=== PATIENT | male | born 1955 | race Caucasian/White ===

== ENCOUNTER 2022-04-17 19:30 | Emergency (ER) | payer MEDICARE ==
[~2022-04-17] VITALS: Ht 188 cm; Wt 90.7 kg
[2022-04-17] MEDS ORDERED: CLINGEL TOP (19:51)
[2022-04-17] MEDS ORDERED: ATORVASTATIN CA20 MG PO (19:51)
[2022-04-17] MEDS ORDERED: PRAM.5 PO (19:51)
[2022-04-17] MEDS ORDERED: FLUTICASONE-SA1 EA10 INH (19:52)
[2022-04-17] MEDS ORDERED: YUPELRI175 MCG/1 INH (19:52)
[2022-04-17] MEDS ORDERED: KLOR-CON 1010 ME8 PO (19:52)
[2022-04-17] MEDS ORDERED: FUROSEMIDE20 MG PO (19:52)
[2022-04-17] MEDS ORDERED: NEURONTIN300 MG PO (19:52)
[2022-04-17] MEDS ORDERED: ELIQUIS5 M3 PO (19:52)
[2022-04-17] MEDS ORDERED: METO100ER PO (19:52)
[2022-04-17] MEDS ORDERED: TIOT18 INH (19:52)
[2022-04-17] MEDS ORDERED: PREDNISONE (19:53)
[2022-04-17] MEDS ORDERED: Ventolin/Prove6.7 GM INH (19:53)
[2022-04-17] MEDS ORDERED: ESCITALOPRAM TAB 20M (19:55)
[2022-04-17] MEDS ORDERED: LISINOPRIL TAB 5MG (19:55)
[2022-04-17] MEDS ORDERED: Amlodipine Bes2.5 MG PO (19:56)
[2022-04-17] MEDS ORDERED: PANT40 PO (19:57)
[2022-04-17 20:02] LABS: BASOPHILS ABSOLUTE AUTO 0.02 K/mm3 (0.00-0.23); BASOPHILS PERCENT AUTO 0 % (0-2); EOSINOPHILS ABSOLUTE AUTO 0.01 K/mm3 (0.00-0.68); EOSINOPHILS PERCENT AUTO 0 % (0-6); Hematocrit 35.9 % (37.0-53.0); Hemoglobin 11.1 g/dL (13.5-17.5); IMMATURE GRAN ABSOLUTE AUTO 0.05 K/mm3 (0.00-0.10); IMMATURE GRAN PERCENT AUTO 0 % (0-1); LYMPHOCYTES ABSOLUTE AUTO 0.66 K/mm3 (0.84-5.20); LYMPHOCYTES PERCENT AUTO 6 % (21-46); MONOCYTES PERCENT AUTO 5 % (4-13); Mean Corpuscular HGB 29.9 pg (26.0-34.0); Mean Corpuscular HGB Conc 30.9 g/dL (31.5-36.5); Mean Corpuscular Volume 97 fL (80-100); Mean Platelet Volume 9.6 fL (9.1-12.4); NEUTROPHILS ABSOLUTE AUTO 10.62 K/mm3 (1.96-9.15); NEUTROPHILS PERCENT AUTO 89 % (41-73); Platelet Count 295 K/mm3 (150-400); RDW Coefficient Variation 16.4 % (11.7-14.2); RDW Standard Deviation 57.1 fL (35.1-46.3); Red Blood Cell Count 3.71 M/mm3 (4.30-5.90); White Blood Cell Count 11.96 K/mm3 (4.00-11.30)
[2022-04-17 20:22] LABS: Albumin, Blood 3.6 g/dL (3.4-5.0); Albumin/Globulin Ratio 1.1 (0.8-1.8); Bilirubin, Total 0.8 mg/dL (0.1-1.0); Bun/Creatinine Ratio 20.5 (12.0-20.0); Calcium, Blood 9.4 mg/dL (8.5-10.1); Creatinine, Blood 1.22 mg/dL (0.60-1.20); Globulin, Blood 3.3 g/dL (2.2-4.0); Potassium, Blood 4.5 mmol/L (3.5-5.5); Total Protein, Blood 6.9 g/dL (6.4-8.2)
== END 2022-04-17 22:45 | disposition home or self-care (01) ==
LOC: ER 19:30
PROVIDERS: Emergency Medicine
DX: J44.1 Chronic obstructive pulmonary disease with (acute) exacerbation (principal); I10 Essential (primary) hypertension; Z95.1 Presence of aortocoronary bypass graft; Z95.2 Presence of prosthetic heart valve; Z79.899 Other long term (current) drug therapy; Z79.01 Long term (current) use of anticoagulants; Z79.52 Long term (current) use of systemic steroids
CPT/HCPCS: 36415; 71046; 80053; 84145; 84484; 85025; 94640; 94664; A9270

== ENCOUNTER 2022-07-23 10:10 | Inpatient (IN) | payer OTHER ==
[~2022-07-23] VITALS: Ht 185.4 cm; Wt 90.2 kg
[~2022-07-23 10:10] MED LIST: ATORVASTATIN CA20 MG PO; Amlodipine Bes2.5 MG PO; CLINGEL TOP; ELIQUIS5 M3 PO; ESCITALOPRAM TAB 20M; FLUTICASONE-SA1 EA10 INH; FUROSEMIDE20 MG PO; KLOR-CON 1010 ME8 PO; LISINOPRIL TAB 5MG; METO100ER PO; NEURONTIN300 MG PO; PANT40 PO; PRAM.5 PO; PREDNISONE; TIOT18 INH; Ventolin/Prove6.7 GM INH; YUPELRI175 MCG/1 INH
[2022-07-23 10:48] LABS: BASOPHILS ABSOLUTE AUTO 0.03 K/mm3 (0.00-0.23); BASOPHILS PERCENT AUTO 0 % (0-2); Hematocrit 31.8 % (37.0-53.0); LYMPHOCYTES ABSOLUTE AUTO 0.16 K/mm3 (0.84-5.20); LYMPHOCYTES PERCENT AUTO 1 % (21-46); MONOCYTES ABSOLUTE AUTO 0.25 K/mm3 (0.16-1.47); MONOCYTES PERCENT AUTO 2 % (4-13); Mean Corpuscular HGB 30.8 pg (26.0-34.0); Mean Corpuscular HGB Conc 31.4 g/dL (31.5-36.5); Mean Corpuscular Volume 98 fL (80-100); NRBC ABSOLUTE 0.05 K/mm3 (0.00-0.02); NRBC Auto 0.3 /100 WBC (0.0-0.2); Platelet Count 145 K/mm3 (150-400); RDW Coefficient Variation 17.3 % (11.7-14.2); RDW Standard Deviation 63.2 fL (35.1-46.3); Red Blood Cell Count 3.25 M/mm3 (4.30-5.90); White Blood Cell Count 14.53 K/mm3 (4.00-11.30)
[2022-07-23 10:50] LABS: EOSINOPHILS PERCENT AUTO 0 % (0-6); IMMATURE GRAN ABSOLUTE AUTO 0.16 K/mm3 (0.00-0.10); IMMATURE GRAN PERCENT AUTO 1 % (0-1); NEUTROPHILS ABSOLUTE AUTO 13.93 K/mm3 (1.96-9.15); NEUTROPHILS PERCENT AUTO 96 % (41-73)
[2022-07-23 11:02] LABS: Albumin, Blood 2.2 g/dL (3.4-5.0); Albumin/Globulin Ratio 0.5 (0.8-1.8); Bilirubin, Total 0.8 mg/dL (0.1-1.0); Bun/Creatinine Ratio 29.8 (12.0-20.0); Calcium, Blood 8.6 mg/dL (8.5-10.1); Creatinine, Blood 2.42 mg/dL (0.60-1.20); Globulin, Blood 4.1 g/dL (2.2-4.0); Potassium, Blood 5.2 mmol/L (3.5-5.5); Total Protein, Blood 6.3 g/dL (6.4-8.2)
[2022-07-23 11:37] LABS: Influenza A, PCR NEGATIVE (NEGATIVE); Influenza B, PCR NEGATIVE (NEGATIVE); Resp Syncytial Virus, PCR NEGATIVE (NEGATIVE); SARS-Cov-2 (COVID-19) PCR, MMC NEGATIVE (NEGATIVE)
--- NOTE | 2022-07-23 19:35 | NUR ---
PATIENT ARRIVED TO ICU 4 AT THIS TIME. PATIENT LETHARGIC BUT EASILY AROUSABLE. ABLE TO ANSWER QUESTIONS AND FOLLOW COMMANDS. LEVO RUNNING AT 9. PATIENT ON BIPAP. SKIN COVERED IN SCATTERED BRUISES. BILATERAL LOWER EXTREMITIES EDEMETOUS FROM TOES TO GROIN. DOPPLERED PULSES. ATTACHED TO MONITORS AND CONSULTED PHYSICIAN FOR POSSIBLE CONCERN FOR INTUBATION.
[2022-07-23 23:23] LABS: Source, Urine Clean Catch
[2022-07-23 23:40] LABS: Appearance, Urine Clear (Clear); Bilirubin, Urine Neg (Neg); Blood, Urine Neg (Neg); Color, Urine Yellow (P-Yellow); Glucose Qualitative, Urine Neg (Neg); Ketones, Urine Neg (Neg); Leukocyte Esterase, Urine Neg (Neg); Nitrite, Urine Neg (Neg); Protein, Urine 2+ (Neg); Urobilinogen, Urine NORM (Normal)
[2022-07-24 00:03] LABS: Amorphous Light (0-Heavy); Bacteria Few /hpf; Red Blood Cells, Urine 0-2 /hpf (0-2); Squamous Epithelial Cells Few /hpf (Few); White Blood Cells, Urine 0-2 /hpf (0-5)
[2022-07-24 04:11] LABS: Hematocrit 27.3 % (37.0-53.0); Hemoglobin 8.7 g/dL (13.5-17.5); Mean Corpuscular HGB 30.7 pg (26.0-34.0); Mean Corpuscular HGB Conc 31.9 g/dL (31.5-36.5); Mean Corpuscular Volume 97 fL (80-100); Mean Platelet Volume 10.6 fL (9.1-12.4); NRBC ABSOLUTE 0.02 K/mm3 (0.00-0.02); NRBC Auto 0.1 /100 WBC (0.0-0.2); Platelet Count 100 K/mm3 (150-400); RDW Coefficient Variation 17.6 % (11.7-14.2); RDW Standard Deviation 62.9 fL (35.1-46.3); Red Blood Cell Count 2.83 M/mm3 (4.30-5.90); White Blood Cell Count 21.91 K/mm3 (4.00-11.30)
[2022-07-24 05:08] LABS: Albumin, Blood 2.5 g/dL (3.4-5.0); Albumin/Globulin Ratio 0.7 (0.8-1.8); Bilirubin, Total 1.1 mg/dL (0.1-1.0); Bun/Creatinine Ratio 26.1 (12.0-20.0); Calcium, Blood 8.1 mg/dL (8.5-10.1); Creatinine, Blood 2.87 mg/dL (0.60-1.20); Globulin, Blood 3.5 g/dL (2.2-4.0); Magnesium, Blood 2.4 mg/dL (1.6-2.4); Potassium, Blood 4.9 mmol/L (3.5-5.5)
[2022-07-24 05:33] LABS: BAND PERCENT MAN 13 % (0-8); BASOPHILS PERCENT MAN 0 % (0-2); EOSINOPHILS PERCENT MAN 0 % (0-6); LYMPHOCYTES ABSOLUTE MAN 0.43 K/mm3 (0.84-5.20); LYMPHOCYTES PERCENT MAN 2 % (21-46); METAMYELOCYTE ABSOLUTE MAN 0.65 K/mm3 (0.00-0.00); METAMYELOCYTE PERCENT MAN 3 % (0-0); MONOCYTES ABSOLUTE MAN 0.21 K/mm3 (0.16-1.47); MONOCYTES PERCENT MAN 1 % (4-13); MYELOCYTE ABSOLUTE MAN 0.43 K/mm3 (0.00-0.00); MYELOCYTE PERCENT MAN 2 % (0-0); NEUTROPHILS ABSOLUTE MAN 20.15 K/mm3 (1.96-9.15); SEG NEUTROPHILS PERCENT MAN 79 % (41-73); TOTAL CELLS COUNTED 100
--- NOTE | 2022-07-24 06:35 | NUR ---
SHIFT SUMMARY: NEURO: PATIENT ALERT AND ORIENTED. COMPLAINING OF PAIN IN WRISTS AND ARMS BUT OXYCODONE CONTROLS THE PAIN. CARDIAC: PATIENT INITIALLY ON LEVOPHED BUT TITRATED OFF BY 0015. MAP> [address] BROWN. HR 80'S SINUS RHYTHM RESP: INITIAL CONCERN FOR INTUBATION DUE TO RESPIRATORY STATUS BUT PATIENT GREATY IMPROVED THROUGHOUT SHIFT. TRANSITIONED FROM BIPAP TO ROOM AIR OVERNIGHT. PATIENT TOLERATING WELL. GI: ABDOMEN DISTENDED, HYPOACTIVE BOWEL SOUNDS. : DAVIS CATHETER PLACED ON ARRIVAL. SKIN: SCATTERED BRUISING ALL OVER. +4 PITTING EDEMA BILATERALLY. OTHER: AM LABS SHOWED INCREASED WBC'S, DECREASED PLATELETS AND DECREASED HGB. MD NOTIFIED, NO ORDERS RECEIVED.
--- NOTE | 2022-07-24 07:25 | NUR ---
took over care of pt at 0700. pt resting on RA
--- NOTE | 2022-07-24 13:44 | NUR ---
FAMILY UPDATED ON PT'S TRANSFER TO PCU
--- NOTE | 2022-07-24 18:59 | NUR ---
PT ARRIVED TO ROOM PCU20 AT 1335 THIS AFTERNOON. PT ALERT, ORIENTED, ABLE TO USE CALL LIGHT FOR NEEDS. PT TAKEN TO CT/IMAGING PER MD ORDERS. PT MEDICATED FOR PAIN PER EMAR. FAMILY AT BEDSIDE THIS EVENING UPDATED, DR WATERS TO REVIEW IMAGING RESULTS WITH THEM IN THE AM. NO ACUTE EVENTS SINCE TRANSFER. CALL LIGHT IN REACH, WILL CONTINUE TO MONITOR AND GIVE REPORT TO NOC SHIFT RN.
--- NOTE | 2022-07-24 19:34 | NUR ---
ASSUMED CARE OF PT, REPORT RECEIVED. PT NOTED RESTING QUIETLY AND RECLINING IN BED WITH UDN IN PROGRESS, VITALS REVIEWED WITH OFFGOING RN, MAINTAINING STABLE AT THIS TIME. QUAD LUMEN CENTRAL LINE ACCESS NOTED TO RIGHT UPPER CHEST, DRESSING CDI, PT DOES HAVE PERIPHERAL ACCESS, WILL PLAN TO ASSESS FOR ABILITY TO DC CENTRAL LINE THIS SHIFT. SATS MAINTAINING ON ROOM AIR, LOW 90S, PT DENIES NEEDS AT THIS TIME.
[2022-07-25 04:44] LABS: Hematocrit 26.7 % (37.0-53.0); Hemoglobin 8.5 g/dL (13.5-17.5); Mean Corpuscular HGB 30.2 pg (26.0-34.0); Mean Corpuscular HGB Conc 31.8 g/dL (31.5-36.5); Mean Corpuscular Volume 95 fL (80-100); NRBC ABSOLUTE 0.04 K/mm3 (0.00-0.02); NRBC Auto 0.2 /100 WBC (0.0-0.2); Platelet Count 82 K/mm3 (150-400); RDW Coefficient Variation 17.8 % (11.7-14.2); RDW Standard Deviation 62.5 fL (35.1-46.3); Red Blood Cell Count 2.81 M/mm3 (4.30-5.90); White Blood Cell Count 17.23 K/mm3 (4.00-11.30)
[2022-07-25 04:58] LABS: Albumin, Blood 2.1 g/dL (3.4-5.0); Anion Gap 9 mmol/L (6-16); Blood Urea Nitrogen 88 mg/dL (8-24); Bun/Creatinine Ratio 31.8 (12.0-20.0); CO2, Blood 24 mmol/L (21-32); Calcium, Blood 8.1 mg/dL (8.5-10.1); Chloride, Blood 103 mmol/L (98-108); Creatinine, Blood 2.77 mg/dL (0.60-1.20); Glomerular Filtration Rate 25 (60-); Glucose, Blood 242 mg/dL (70-99); Phosphorus, Blood 5.1 mg/dL (2.5-4.9); Potassium, Blood 5.2 mmol/L (3.5-5.5); Sodium, Blood 136 mmol/L (136-145)
[2022-07-25 05:32] LABS: BAND PERCENT MAN 4 % (0-8); BASOPHILS PERCENT MAN 0 % (0-2); EOSINOPHILS PERCENT MAN 0 % (0-6); LYMPHOCYTES ABSOLUTE MAN 0.17 K/mm3 (0.84-5.20); LYMPHOCYTES PERCENT MAN 1 % (21-46); MONOCYTES PERCENT MAN 0 % (4-13); NEUTROPHILS ABSOLUTE MAN 17.05 K/mm3 (1.96-9.15); SEG NEUTROPHILS PERCENT MAN 95 % (41-73); TOTAL CELLS COUNTED 100
--- NOTE | 2022-07-25 05:34 | NUR ---
PT RESTS QUIETLY THROUGHOUT SHIFT, CONTINUES TO STATE THAT HIS BREATHING FEELS IMPROVED, LUNGS REMAIN COARSE WITH INTERMITTENT INS/EXP WHEEZES HOWEVER SATS HAVE MAINTAINED EVEN WITH SLEEP IN THE LOW 90S, NO VISIBLE INCREASED WORK OF BREATHING IS NOTED AT REST AND PT HAS BEEN QUITE CONVERSATIONAL AT TIMES. TOLERATES TURNS EVERY 2 HOURS, ARMS DO CONTINUE TO BE PAINFUL TO TOUCH, RIGHT ARM PAIN IS RATED SOMEWHAT GREATER THAN LEFT, MOST NOTEABLY AT PT ELBOW. PRESSURES CONTINUE TO MAINTAIN MAP. AM LABS NOTED, WILL DISCUSS WITH PHYSICIAN EMISSIONS REPAIR TECHNICIAN.
--- NOTE | 2022-07-25 12:01 | NUR ---
Assumed care of patient at approx 1000, I agree with previosu turnaround engineer. Pt alert, oriented x3, calm and coopertive of care. Pt up in chair with 1-2 person assist. Pt denies pain, chest pain, nausea and dizziness at this time. pt reports tingling to bilateral elbows to fingers. Pt sob with exertion, spo2 >90% on ra, ls coarse t/o occasional wheezes noted, pt reporting a productive couhg, no sputum seen at this time. Tele sinus tach 100-110's. bp stable. BLE pitting edema 4+, tapering to thigh at 2+; bilateral hands/forearms, nonpitting. Abd mild distention, soft, nontender, with hypoactive bt, denies nausea at this time, but has had it intermittently. Kaur in place and draining. Vss. No other acute changes noted. Will continue to monitor.
--- NOTE | 2022-07-25 18:17 | NUR ---
Shift Summary Pt reporting pain to bilateral arms this afternoon, medicated per emar. Pt up in chair for majority of shift. Vss. Pt reciving midodrine. No other acute changes noted. Will continue to monitor unitl report given to oncoming rn.
--- NOTE | 2022-07-25 19:30 | NUR ---
ASSUMED CARE PT SITTING UP IN CHAIR, AWAKE AND ALERT. ANSWERING ORIENTATION QUESTIONS CORRECTLY. O2 SATS >90% ON RA. HR NSR 90'S. BP STABLE. PT COMPLAINS OF PAIN TO ARMS. DAVIS PATENT AND DRAINING. CENTRAL LINE TO RIGHT CHEST WITH DRESSING SATURATED IN BLOOD. CENTRAL LINE REMOVED PER PROTOCOL AND NO COMPLICATIONS. PRESSURE HELD FOR 5 MINUTES AND PT LYING FLAT FOR 30 MIN. PT PROVIDED BED BATH. WILL CONTINUE TO MONITOR CLOSELY. BED ALARM ON FOR SAFETY
--- NOTE | 2022-07-25 19:49 | NUR ---
Time spent with patient hearing his stroy and stressors. He ahs care for his mother for quite some time. He relaocated here after her passing. He appears to be struggling with living alone and his declining health. He ahs a cat he is very attached to. He speaks frequently about the support he gets from his sister and his daughter. His face is some what mask like and some tremor. He struggles with sleep and comfort. He has only had one fall this past year. He is anxious about his future. Struggling with his vision and not having glasses. Brought his some readers and some art therapy. Asked chaplian to see him for support. Will follow up with prognsoisi and plan of care. pt may be high risk for readmission of he returns home after rehab.
--- NOTE | 2022-07-26 04:53 | NUR ---
SHIFT SUMMARY PT REMAINS ALERT AND ORIENTED. VS STABLE. PT DENIES ANY PAIN AFTER MEDICATION ADMINISTRATION. PT HAS SLEPT MOST OF SHIFT. NO OTHER ACUTE CHANGES. WILL CONTINUE TO MONITOR AND REPORT TO ONCOMING RN
[2022-07-26 05:49] LABS: BASOPHILS ABSOLUTE AUTO 0.02 K/mm3 (0.00-0.23); BASOPHILS PERCENT AUTO 0 % (0-2); EOSINOPHILS PERCENT AUTO 0 % (0-6); Hematocrit 28.6 % (37.0-53.0); Hemoglobin 9.1 g/dL (13.5-17.5); IMMATURE GRAN ABSOLUTE AUTO 0.24 K/mm3 (0.00-0.10); IMMATURE GRAN PERCENT AUTO 2 % (0-1); LYMPHOCYTES ABSOLUTE AUTO 0.27 K/mm3 (0.84-5.20); LYMPHOCYTES PERCENT AUTO 2 % (21-46); MONOCYTES ABSOLUTE AUTO 0.33 K/mm3 (0.16-1.47); MONOCYTES PERCENT AUTO 2 % (4-13); Mean Corpuscular HGB 29.8 pg (26.0-34.0); Mean Corpuscular HGB Conc 31.8 g/dL (31.5-36.5); Mean Corpuscular Volume 94 fL (80-100); Mean Platelet Volume 12.3 fL (9.1-12.4); NEUTROPHILS PERCENT AUTO 95 % (41-73); NRBC ABSOLUTE 0.04 K/mm3 (0.00-0.02); NRBC Auto 0.3 /100 WBC (0.0-0.2); Platelet Count 70 K/mm3 (150-400); RDW Standard Deviation 62.6 fL (35.1-46.3); Red Blood Cell Count 3.05 M/mm3 (4.30-5.90); White Blood Cell Count 15.46 K/mm3 (4.00-11.30)
[2022-07-26 06:07] LABS: Albumin, Blood 2.2 g/dL (3.4-5.0); Anion Gap 9 mmol/L (6-16); Blood Urea Nitrogen 95 mg/dL (8-24); Bun/Creatinine Ratio 40.8 (12.0-20.0); CO2, Blood 23 mmol/L (21-32); Calcium, Blood 8.7 mg/dL (8.5-10.1); Chloride, Blood 105 mmol/L (98-108); Creatinine, Blood 2.33 mg/dL (0.60-1.20); Glomerular Filtration Rate 30 (60-); Glucose, Blood 178 mg/dL (70-99); Phosphorus, Blood 4.4 mg/dL (2.5-4.9); Potassium, Blood 5.1 mmol/L (3.5-5.5); Sodium, Blood 137 mmol/L (136-145)
--- NOTE | 2022-07-26 08:18 | NUR ---
Am note Pt alert, oriented x4; calm and cooperative with care. Pt up with 2 person assist to recliner this am with gaitbelt. Pt denies pain, chest pain/pressure, nausea and dizziness at this time. Pt sob with exertion, spo2 >90% on ra at rest, desaturated with activity to 82%, placed 2l o2 via nc to recover, pt has productive cough with peterson/pink tinged sputum, ls coarse t/o with crackles to bases. Pt tele sinus tach 100-120's, bp stable. Abd mild distention, soft, nontender with normoactive bt. Ble 4+ pitting edema noted to knees and 2+ to thigh, nonpitting edema to bue. Other vss. No other acute changes noted. Will continue to monitor.
--- NOTE | 2022-07-26 10:52 | NUR ---
Spiritual care visit conducted. Pt tells me about his mediacl issues/history, his family (3 dtrs back east, sister Roxana who is present in the ) and the of his mother (who recently from COVID). He also shares about his Church Che[employer] background, how he moved away from the rastafari but states that in this season of his life he finds much comfort and strength from his prayers. He talks about his personal struggles because of the strain from medical problem after medical problem. I normalize his experience, reinforce helpful attitudes and practices and provide therapeutic listening, grief support and prayer. Pt and Roxana responds well to all interventions and show signs of being comforted and encouraged. I will continue to remain available to pt and fmaily.
--- NOTE | 2022-07-26 17:28 | NUR ---
Shift Summary Pt up in recliner for majority of shift, 2 person assist. Titrated back down to ra, continues to desaturate with activty, plans to use 2l o2 via nc. Pt reporting pain to shoulder/arms; medicated per emar. Other vss. No other acute changes noted. Will continue to monitor unitl report given to oncoming rn.
[2022-07-27 04:30] LABS: Albumin, Blood 2.4 g/dL (3.4-5.0); Anion Gap 8 mmol/L (6-16); Blood Urea Nitrogen 98 mg/dL (8-24); Bun/Creatinine Ratio 46.9 (12.0-20.0); CO2, Blood 24 mmol/L (21-32); Chloride, Blood 104 mmol/L (98-108); Creatinine, Blood 2.09 mg/dL (0.60-1.20); Glomerular Filtration Rate 34 (60-); Glucose, Blood 146 mg/dL (70-99); Phosphorus, Blood 4.7 mg/dL (2.5-4.9); Potassium, Blood 5.6 mmol/L (3.5-5.5); Sodium, Blood 136 mmol/L (136-145)
--- NOTE | 2022-07-27 06:01 | NUR ---
SHIFT SUMMARY PT A&OX4, PLEASANT AND COOPERATIVE. PT WANTED TO REMAIN IN CHAIR THIS EVENING, ELEVATED LEGS, 2 ASSIST WHEN MOVING PER HANDOFF. VSS T/O SHIFT. SPO2 >93 ON RA. MEDICATED FOR PAIN ONCE, FOR ARMS/SHOULDER PAIN. DAVIS DRAINING TO GRAVITY, YELLOW/CLEAR. CALLS APPROPRIATELY, CALL LIGHT WITHIN REACH.
--- NOTE | 2022-07-27 07:32 | NUR ---
Am note Assumed care of patient at 0700. Pt Alert, oriented x4; calm and cooperative with care. Pt up in recliner, 2 person assist with walker and gaitbelt. Pt denies pain, chest pain/presure, sob, nausea and dizziness. Pt reports numb/tingling to extremities. Edema noted to ble feet to knees 4+, and bilateral thighs 1-2+, nonpitting edema noted to bue. Tele sinus 80's, bp stalbe. Ls coarse, crackles to bases, spo2 >90% on ra, pt has productive cough with peterson/pink tinged sputum. Abd mild distention, nontender, with normoactive bt. Other vss. No other acute changes noted. Will continue to monitor until report given to oncoming rn.
--- NOTE | 2022-07-27 17:52 | NUR ---
Shift Summray Pt continues on ra t/o shift. Up in chair, encouraged to elevated ble t/o shift. BP this afternoon 138/87 held midodrine this evening. Other vss. No other acute changes noted. Report given to rn assuming care of patient. Pt transfering to medical unit.
--- NOTE | 2022-07-28 04:49 | NUR ---
SHIFT SUMMARY PATIENT WAS A RECENT TRANSFER FROM PCU. PATIENT HAS BEEN ALERT AND ORIENTED BUT FORGETFUL. PATIENT IS A 2 PERSON MAX ASSIST. PATIENT HAS BEEN IN CHAIR MOST OF SHIFT. PATIENT HAS A DAVIS THAT IS DRAINING TO GRAVITY TINA URINE. PATIENT HAS HAD NO ACUTE EVENTS THIS SHIFT. VITAL SIGNS REVIEWED. PATIENT HAS NO COMPLAINTS OF PAIN, NAUSEA, SOB OR VOMITTING THIS SHIFT. BED IN LOCKED AND LOWEST POSITION. CALL LIGHT IN PLACE. WILL MONITOR UNTIL SHIFT CHANGE.
[2022-07-28 05:00] LABS: BASOPHILS ABSOLUTE AUTO 0.03 K/mm3 (0.00-0.23); BASOPHILS PERCENT AUTO 0 % (0-2); EOSINOPHILS PERCENT AUTO 0 % (0-6); Hematocrit 27.8 % (37.0-53.0); IMMATURE GRAN ABSOLUTE AUTO 0.61 K/mm3 (0.00-0.10); IMMATURE GRAN PERCENT AUTO 5 % (0-1); LYMPHOCYTES PERCENT AUTO 4 % (21-46); MONOCYTES ABSOLUTE AUTO 0.37 K/mm3 (0.16-1.47); MONOCYTES PERCENT AUTO 3 % (4-13); Mean Corpuscular HGB 30.6 pg (26.0-34.0); Mean Corpuscular HGB Conc 32.4 g/dL (31.5-36.5); Mean Corpuscular Volume 95 fL (80-100); Mean Platelet Volume 11.6 fL (9.1-12.4); NEUTROPHILS PERCENT AUTO 89 % (41-73); NRBC ABSOLUTE 0.02 K/mm3 (0.00-0.02); NRBC Auto 0.1 /100 WBC (0.0-0.2); Platelet Count 74 K/mm3 (150-400); RDW Standard Deviation 62.9 fL (35.1-46.3); Red Blood Cell Count 2.94 M/mm3 (4.30-5.90); White Blood Cell Count 13.61 K/mm3 (4.00-11.30)
[2022-07-28 05:34] LABS: Bun/Creatinine Ratio 53.6 (12.0-20.0); Creatinine, Blood 1.68 mg/dL (0.60-1.20); Potassium, Blood 4.7 mmol/L (3.5-5.5)
--- NOTE | 2022-07-28 10:15 | NUR ---
BLACKSMITH HELPER REPORTING THAT PT HAD TWO SMALL 5 BEAT RUNS V-TACH. PT ASYMPTOMATIC WHEN CHECKED. DENIED CHEST PAIN/PRESSURE OR INCREASED SOB. WILL CONTINUE TO MONITOR.
--- NOTE | 2022-07-28 11:37 | NUR ---
TELE REPORTS ANOTHER SMALL RUN OF V-TACH, T/C TO INFORM DR REED. NO NEW ORDERS AT THIS TIME, CONTINUE TO MONITOR
--- NOTE | 2022-07-28 18:24 | NUR ---
PT ALERT AND ORIENTED, FORGETFUL. PLEASANT AND COOPERATIVE WITH CARE. WORKED WITH PT/OT THIS MORNING, UP TO BEDSIDE RECLINER. REPORTING BACK PAIN, MEDICATED PER EMAR WITH 5 MG PO ROXICODONE. DAVIS DRAINING TO GRAVITY WITH TINA URINE. PT IS A 2 MAX ASSIST OR OVERHEAD LIFT. PO MEDS TAKEN WITH APPLESAUSE. WILL CONTINUE TO MONITOR AND REPORT TO ONCOMING RN
--- NOTE | 2022-07-29 12:53 | NUR ---
PT HAS HISTORY OF SHORT RUNS OF V-TACH BETWEEN 4-7 BEATS. PT DENIES CHEST PAIN, SOB, OR PALPITATIONS. RN AND TELEMETRY DISCUSSED, WILL CONTINUE TO MONITOR DUE TO PT'S HISTORY OF FREQUENT SHORT BURSTS OF VTACH YESTERDAY AND TODAY.
--- NOTE | 2022-07-29 13:27 | NUR ---
NOTIFIED DR. MICHELE, VIA CELL PHONE, THAT PT CONTINUES TO HAVE SHORT BURSTS OF V-TACH LASTING 4-7 BEATS. PT IS ASYMPTOMATIC, DENIES CHEST PAIN/PRESSURE OR SOB. PT STATES HE IS ANXIOUS, DENIES FEELING OF PALPITATIONS. DR. MICHELE WITH NO NEW ORDERS AT THIS TIME. WILL CONTINUE TO MONITOR VIA TELEMETRY.
--- NOTE | 2022-07-29 18:31 | NUR ---
SHIFT SUMMARY PT AWAITING PLACEMENT IN SNF. HE C/O BURNING ON HIS TONGUE AND ROOF OF MOUTH, RN ASSESSED WHITE PLAQUES IN MOUTH THAT ARE NOT REMOVED BY BRUSHING. RECEIVED ORDER FROM DR. MICHELE FOR NYSTATIN. PT REPORTED RELIEF WITH NYSTATIN, ABLE TO EAT MORE DINNER. PT IS MONITORED BY TELEMETRY, MOSTLY IN SINUS TACH 108. TELE WILL CALL TO REPORT TO RN FREQUENT SHORT EPISODES OF VTACH, LASTING 4-7 BEATS. THIS IS A TREND FROM YESTERDAY. DR. MICHELE AWARE. [facility] SOFT DIET, PILLS WHOLE WITH APPLESAUCE. MAX PERSON 2 ASSIST OUT OF BED.
--- NOTE | 2022-07-29 19:30 | NUR ---
RECEIVED BEDSIDE REPORT. NO NEEDS AT THIS TIME. PT A/O. ABLE TO STATE NEEDS APPROPRIATELY. WILL CONTINUE TO PROVIDE CARE T/O SHIFT. CALL LT IN REACH.
--- NOTE | 2022-07-29 20:03 | NUR ---
MEDS GIVEN WITHOUT DIFFICULT, HOB ELEVATED. NO NEEDS AT THIS TIME. PLEASANT AND COOPERATIVE WITH CARE. WILL CONTINUE TO PROVIDE CARE T/O SHIFT. CALL LT IN REACH.
--- NOTE | 2022-07-29 22:00 | NUR ---
NO NEEDS AT THIS TIME. PT RESTING QUIETLY, EYES CLOSED. CALL LT IN REACH.
--- NOTE | 2022-07-30 00:14 | NUR ---
PT RESTING QUIETLY. RESP EVEN. CALL LT IN REACH.
--- NOTE | 2022-07-30 00:57 | NUR ---
PT DECLINED REPOSITIONING.
--- NOTE | 2022-07-30 02:06 | NUR ---
ELECTROPHONIC ENGINEER REPOSITIONED PT.
--- NOTE | 2022-07-30 04:25 | NUR ---
PT AWAKE AND DOING CROSSWORDS. VSS. NO NEEDS AT THIS TIME. CALL LT IN REACH.
[2022-07-30 04:36] LABS: Hematocrit 24.3 % (37.0-53.0); Hemoglobin 7.7 g/dL (13.5-17.5); Mean Corpuscular HGB 30.2 pg (26.0-34.0); Mean Corpuscular HGB Conc 31.7 g/dL (31.5-36.5); Mean Corpuscular Volume 95 fL (80-100); Mean Platelet Volume 10.8 fL (9.1-12.4); NRBC ABSOLUTE 0.06 K/mm3 (0.00-0.02); NRBC Auto 0.4 /100 WBC (0.0-0.2); Platelet Count 130 K/mm3 (150-400); RDW Coefficient Variation 17.7 % (11.7-14.2); RDW Standard Deviation 61.4 fL (35.1-46.3); Red Blood Cell Count 2.55 M/mm3 (4.30-5.90); White Blood Cell Count 15.79 K/mm3 (4.00-11.30)
[2022-07-30 04:59] LABS: Albumin, Blood 2.3 g/dL (3.4-5.0); Albumin/Globulin Ratio 0.7 (0.8-1.8); Bilirubin, Total 0.7 mg/dL (0.1-1.0); Bun/Creatinine Ratio 60.9 (12.0-20.0); Calcium, Blood 8.3 mg/dL (8.5-10.1); Creatinine, Blood 1.1 mg/dL (0.60-1.20); Globulin, Blood 3.5 g/dL (2.2-4.0); Potassium, Blood 3.7 mmol/L (3.5-5.5); Total Protein, Blood 5.8 g/dL (6.4-8.2)
--- NOTE | 2022-07-30 05:08 | NUR ---
SHIFT SUMMARY: A/O. ABLE TO STATE NEEDS APPROPRIATELY. MEDS GIVEN WITHOUT DIFFICULTY. ON RA. SINUS IN 90'S ON TELE, NO REPORTED RUNS OF VTACH DURING SHIFT. METOPROLOL 25MG ONE TIME DOSE GIVEN. HEART RATE THIS MORNING AT 90. MEDICATED ONCE FOR ALL OVER PAIN WITH A 5MG OXYCODONE WITH GOOD PAIN RELIEF. PT RESTED WELL. DAVIS PATENT AND DRAINING TO GRAVITY. PT REPORTS BLE EDEMA IS IMPROVING. NO ACUTE CHANGES. WILL CONTIUE TO PROVIDE CARE UNTIL SHIFT REPORT.
[2022-07-30 05:30] LABS: BAND PERCENT MAN 2 % (0-8); BASOPHILS PERCENT MAN 0 % (0-2); EOSINOPHILS PERCENT MAN 0 % (0-6); LYMPHOCYTES ABSOLUTE MAN 0.94 K/mm3 (0.84-5.20); LYMPHOCYTES PERCENT MAN 6 % (21-46); MONOCYTES ABSOLUTE MAN 0.47 K/mm3 (0.16-1.47); MONOCYTES PERCENT MAN 3 % (4-13); NEUTROPHILS ABSOLUTE MAN 14.36 K/mm3 (1.96-9.15); SEG NEUTROPHILS PERCENT MAN 89 % (41-73); TOTAL CELLS COUNTED 100
--- NOTE | 2022-07-30 15:22 | NUR ---
TELE REPORTS ANOTHER SMALL RUN OF [facility], DR WATERS NOTIFIED, NO NEW ORDERS RECEIVED. CONTINUE TO MONITOR.
--- NOTE | 2022-07-30 17:33 | NUR ---
SHIFT SUMMARY NO ACUTE CHANGES DURING SHIFT. PT ALERT AND ORIENTED, CALLS APPROPRIATELY. PT WITH ANOTHER RUN OF [facility] TODAY, NOTIFIED. PT OOB TO CHAIR FOR LUNCH AND DINNER. PT MEDICATED WITH PRN PAIN MEDS X 1, WILL CONTINUE TO MONITOR. CALL LIGHT WITHIN REACH.
[2022-07-31 04:51] LABS: BASOPHILS ABSOLUTE AUTO 0.02 K/mm3 (0.00-0.23); BASOPHILS PERCENT AUTO 0 % (0-2); EOSINOPHILS PERCENT AUTO 1 % (0-6); Hematocrit 25.7 % (37.0-53.0); Hemoglobin 7.9 g/dL (13.5-17.5); IMMATURE GRAN ABSOLUTE AUTO 0.64 K/mm3 (0.00-0.10); IMMATURE GRAN PERCENT AUTO 4 % (0-1); LYMPHOCYTES ABSOLUTE AUTO 0.78 K/mm3 (0.84-5.20); LYMPHOCYTES PERCENT AUTO 5 % (21-46); MONOCYTES ABSOLUTE AUTO 0.23 K/mm3 (0.16-1.47); MONOCYTES PERCENT AUTO 2 % (4-13); Mean Corpuscular HGB 29.5 pg (26.0-34.0); Mean Corpuscular HGB Conc 30.7 g/dL (31.5-36.5); Mean Corpuscular Volume 96 fL (80-100); Mean Platelet Volume 10.2 fL (9.1-12.4); NEUTROPHILS ABSOLUTE AUTO 12.71 K/mm3 (1.96-9.15); NEUTROPHILS PERCENT AUTO 88 % (41-73); NRBC ABSOLUTE 0.11 K/mm3 (0.00-0.02); NRBC Auto 0.8 /100 WBC (0.0-0.2); Platelet Count 153 K/mm3 (150-400); RDW Standard Deviation 63.1 fL (35.1-46.3); Red Blood Cell Count 2.68 M/mm3 (4.30-5.90); White Blood Cell Count 14.48 K/mm3 (4.00-11.30)
[2022-07-31 05:16] LABS: Albumin, Blood 2.2 g/dL (3.4-5.0); Albumin/Globulin Ratio 0.6 (0.8-1.8); Bilirubin, Total 0.9 mg/dL (0.1-1.0); Bun/Creatinine Ratio 54.8 (12.0-20.0); Calcium, Blood 8.5 mg/dL (8.5-10.1); Creatinine, Blood 1.04 mg/dL (0.60-1.20); Globulin, Blood 3.4 g/dL (2.2-4.0); Potassium, Blood 3.8 mmol/L (3.5-5.5); Total Protein, Blood 5.6 g/dL (6.4-8.2)
--- NOTE | 2022-07-31 06:34 | NUR ---
FRONT END DRIVER SUMMARY: A&Ox4. PLEASANT AND COOPERATIVE WITH CARE. VSS. DAVIS PATENT AND DRAINING TO GRAVITY. IV x2 PATENT AND FLUSHES. PRN OXYCODONE ADMINISTERED x1 THIS AM. NO OTHER ACUTE CONCERNS OR ISSUES. FEW BEATS OF V-TACH NOTED FROM TELE, BUT OTHERWISE SINUS TACH W/ PACs. WILL REPORT TO ONCOMING RN.
--- NOTE | 2022-07-31 17:16 | NUR ---
SHIFT SUMMARY NO ACUTE CHANGES DURING SHIFT. PT ALERT AND ORIENTED, CALLS APPROPRIATELY. PT UP TO CHAIR FOR MEALS, X 2 ASSIST WITH GAITBELT AND FWW. DAVIS IN PLACE DRAINING TO GRAVITY. PT HAD ANOTHER RUN OF [facility] TODAY, ASYMPTOMATIC, INFORMED DR WATERS, NO ORDERS RECEIVED. CONTINUE TO MONITOR. CALL LIGHT WITHIN REACH.
--- NOTE | 2022-08-01 04:39 | NUR ---
MACHINE CERAMIC COATER SUMMARY: A&Ox4. PLEASANT AND COOPERATIVE [facility]. VSS. CALLS APPROPRIATELY FOR CARE. MEDICATED x1 PAIN & NAUSEA LAST NIGHT WITH BEDTIME MEDS. DAVIS PATENT AND DRAINING TO GRAVITY. RECEIVED 100mL 25GM/100mL ALBUMIN; NO ASE NOTED. WILL REPORT TO ONCOMING RN.
[2022-08-01 05:21] LABS: BASOPHILS ABSOLUTE AUTO 0.02 K/mm3 (0.00-0.23); BASOPHILS PERCENT AUTO 0 % (0-2); EOSINOPHILS ABSOLUTE AUTO 0.07 K/mm3 (0.00-0.68); EOSINOPHILS PERCENT AUTO 1 % (0-6); Hematocrit 23.6 % (37.0-53.0); Hemoglobin 7.1 g/dL (13.5-17.5); IMMATURE GRAN ABSOLUTE AUTO 0.35 K/mm3 (0.00-0.10); IMMATURE GRAN PERCENT AUTO 3 % (0-1); LYMPHOCYTES ABSOLUTE AUTO 0.75 K/mm3 (0.84-5.20); LYMPHOCYTES PERCENT AUTO 6 % (21-46); MONOCYTES ABSOLUTE AUTO 0.31 K/mm3 (0.16-1.47); MONOCYTES PERCENT AUTO 2 % (4-13); Mean Corpuscular HGB 29.2 pg (26.0-34.0); Mean Corpuscular HGB Conc 30.1 g/dL (31.5-36.5); Mean Corpuscular Volume 97 fL (80-100); Mean Platelet Volume 10.7 fL (9.1-12.4); NEUTROPHILS ABSOLUTE AUTO 11.55 K/mm3 (1.96-9.15); NEUTROPHILS PERCENT AUTO 89 % (41-73); NRBC ABSOLUTE 0.05 K/mm3 (0.00-0.02); NRBC Auto 0.4 /100 WBC (0.0-0.2); Platelet Count 160 K/mm3 (150-400); RDW Standard Deviation 63.3 fL (35.1-46.3); Red Blood Cell Count 2.43 M/mm3 (4.30-5.90); White Blood Cell Count 13.05 K/mm3 (4.00-11.30)
[2022-08-01 05:45] LABS: Albumin, Blood 2.6 g/dL (3.4-5.0); Albumin/Globulin Ratio 0.8 (0.8-1.8); Bilirubin, Total 0.9 mg/dL (0.1-1.0); Bun/Creatinine Ratio 45.4 (12.0-20.0); Calcium, Blood 8.6 mg/dL (8.5-10.1); Creatinine, Blood 0.95 mg/dL (0.60-1.20); Globulin, Blood 3.2 g/dL (2.2-4.0); Potassium, Blood 3.9 mmol/L (3.5-5.5); Total Protein, Blood 5.8 g/dL (6.4-8.2)
--- NOTE | 2022-08-01 05:52 | NUR ---
PT W/ WET, NON-PRODUCTIVE COUGH THIS AM. LUNG SOUNDS COARSE. BP 109/37 P: 99, SPO2 85%, rr 24, T: 98.5. PLACED ON 2L/min O2 VIA NASAL CANNULA. LASIX HELD YESTERDAY D/T OUTSIDE PARAMATERS OF SBP<100. CALL PLACED TO DR BETANCUR; T/O FOR 1V CXR AND TO GIVE AM DOSE OF FUROSEMINDE 40MG IV LASIX NOW.
--- NOTE | 2022-08-01 17:20 | NUR ---
SHIFT SUMMARY NO ACUTE CHANGES DURING SHIFT. PT ALERT AND ORIENTED, CALLS APPROPRIATELY. BP REMAINS STABLE, ABLE TO RECEIVE METOPROLOL AND LASIX TODAY. DECREASE IN BLE SWELLING NOTED, STILL PRESENT. PLANS TO D/C TO FACILITY, STILL PENDING. NO C/O PAIN TODAY, WILL CONTINUE TO MONITOR.
--- NOTE | 2022-08-02 02:53 | NUR ---
SHIFT SUMMARY; PATIENT HAS HAD NO ACUTE CHANGES INCONDITION NOTED DURING NOC SHIFT. HE IS NOTED TO BE USING HIS INCENTIVE SPIROMETER WHILE WATCHING TV. HE IS AO X 4. PAPTIENT TAKES HIS MEDS WHOLE WITH WATER WITHOUT DIFFICULTY HIS LUNGS ARE CLEAR IN THE UPPER BASES AND WHEEZES ARE NOTED IN THE BASES. HE HAS A NON PRODUCTIVE COUGH. PATIENT REMAINS ON BEDREST DURING NOC SHIFT AND USES CALL LIGHT APPROPRIATELY. VITAL SIGNS ARE STABLE. MEDICATED X 1 WITH NIGHT TIME MEDS FOR PAIN. WILL CONTINUE TO MONITOR THIS PATIENT CLOSELY FOR ANY WANTS OR NEEDS THAT COME UP DURING NIGHT AND BEFORE REPORT AND HAND OFF TO DAY SHIFT RN.
[2022-08-02 05:41] LABS: BASOPHILS ABSOLUTE AUTO 0.01 K/mm3 (0.00-0.23); BASOPHILS PERCENT AUTO 0 % (0-2); EOSINOPHILS PERCENT AUTO 1 % (0-6); Hematocrit 23.6 % (37.0-53.0); Hemoglobin 7.6 g/dL (13.5-17.5); IMMATURE GRAN ABSOLUTE AUTO 0.21 K/mm3 (0.00-0.10); IMMATURE GRAN PERCENT AUTO 2 % (0-1); LYMPHOCYTES PERCENT AUTO 6 % (21-46); MONOCYTES ABSOLUTE AUTO 0.38 K/mm3 (0.16-1.47); MONOCYTES PERCENT AUTO 3 % (4-13); Mean Corpuscular HGB Conc 32.2 g/dL (31.5-36.5); Mean Corpuscular Volume 93 fL (80-100); NEUTROPHILS ABSOLUTE AUTO 12.23 K/mm3 (1.96-9.15); NEUTROPHILS PERCENT AUTO 89 % (41-73); NRBC ABSOLUTE 0.02 K/mm3 (0.00-0.02); NRBC Auto 0.1 /100 WBC (0.0-0.2); RDW Coefficient Variation 17.7 % (11.7-14.2); RDW Standard Deviation 59.8 fL (35.1-46.3); Red Blood Cell Count 2.53 M/mm3 (4.30-5.90); White Blood Cell Count 13.73 K/mm3 (4.00-11.30)
[2022-08-02 06:18] LABS: Platelet Count 105 K/mm3 (150-400)
--- NOTE | 2022-08-02 18:12 | NUR ---
SHIFT SUMMARY: NO ACUTE EVENTS. NO EVENTS ON TELEMETRY, SR 80-90'S. DECLINED TO GET OOB THIS SHIFT. DAVIS DRIANING ADEQUATE URINE. C/O PAIN IN LUE, WHICH HAS SEVERE BRUISING; MEDICATED PER EMAR WITH LITTLE RELIEF. HAS 3+ PITTING EDEMA IN BLE, RECEIVING LASIX. BREATH SOUNDS ARE DIM, ON O2 @ 1 L/MIN NC. TRIED TO WORK WITH PT/OT, BUT DECLINED D/T PAIN.
--- NOTE | 2022-08-03 06:06 | NUR ---
SHIFT SUMMARY; NO ACUTE CHANGES IN CONDITION ARE NOTED FOR THIS PATIENT DURING NOC SHIFT. HE IS MEDICATED X 1 FOR PAIN WITH GOOD RESULTS. HIS LUNGS ARE COARSE THROUGHOUT AND HE IS NOTED TO HAVE A HACKING COUGH WITH SCANT SPUTUM NOTED. HE IS USING HIS SPIROMETER REGULARLY THROUGHOUT THE NIGHT. HIS BLOOD PRESSURE REMAIN SOFT BELOW 100 SYSTOLIC. HE IS NOT FEBRILE. HE IS AO X 2 TO 3 DURING NOC. PATIENT COMPLAINS OF BRUISING TO HIS UPPER LEFT ARM. HE SAYS IT HURTS TO MOVE HIS ARM UP AND DOWN. WILL REMAIN AVAILABLE FOR THIS PAITENT FOR ANY WANTS OR NEEDS THAT COME UP PRIOR TO REPORT AND HAND OFF TO DAY SHIFT RN.
[2022-08-03 07:18] LABS: BASOPHILS ABSOLUTE AUTO 0.02 K/mm3 (0.00-0.23); BASOPHILS PERCENT AUTO 0 % (0-2); EOSINOPHILS ABSOLUTE AUTO 0.11 K/mm3 (0.00-0.68); EOSINOPHILS PERCENT AUTO 1 % (0-6); Hematocrit 23.8 % (37.0-53.0); Hemoglobin 7.3 g/dL (13.5-17.5); IMMATURE GRAN ABSOLUTE AUTO 0.13 K/mm3 (0.00-0.10); IMMATURE GRAN PERCENT AUTO 1 % (0-1); LYMPHOCYTES PERCENT AUTO 7 % (21-46); MONOCYTES ABSOLUTE AUTO 0.47 K/mm3 (0.16-1.47); MONOCYTES PERCENT AUTO 4 % (4-13); Mean Corpuscular HGB 29.9 pg (26.0-34.0); Mean Corpuscular HGB Conc 30.7 g/dL (31.5-36.5); Mean Platelet Volume 10.2 fL (9.1-12.4); NEUTROPHILS ABSOLUTE AUTO 11.16 K/mm3 (1.96-9.15); NEUTROPHILS PERCENT AUTO 87 % (41-73); Platelet Count 180 K/mm3 (150-400); RDW Coefficient Variation 17.3 % (11.7-14.2); RDW Standard Deviation 61.8 fL (35.1-46.3); Red Blood Cell Count 2.44 M/mm3 (4.30-5.90); White Blood Cell Count 12.79 K/mm3 (4.00-11.30)
[2022-08-03 07:28] LABS: Albumin, Blood 2.2 g/dL (3.4-5.0); Anion Gap 6 mmol/L (6-16); Blood Urea Nitrogen 38 mg/dL (8-24); CO2, Blood 32 mmol/L (21-32); Calcium, Blood 8.4 mg/dL (8.5-10.1); Chloride, Blood 98 mmol/L (98-108); Glomerular Filtration Rate 84 (60-); Glucose, Blood 76 mg/dL (70-99); Potassium, Blood 4.2 mmol/L (3.5-5.5); Sodium, Blood 136 mmol/L (136-145)
[2022-08-03 07:39] LABS: Mean Corpuscular Volume 98 fL (80-100)
--- NOTE | 2022-08-03 19:23 | NUR ---
SHIFT SUMMARY: NO ACUTE EVENTS. TELEMETRY AND DAVIS CATHETER D/C'D TODAY. NO VOID FOR 5 HOURS; BLADDER SCAN SHOWED 314 ML URINE. GIVEN URINAL AND WAS ABLE TO VOID 300 ML ON HIS OWN. ON ROOM AIR, SATS 93-95% DEPENDING ON ACTIVITY. WAS UP IN RECLINER FROM 1000 TO ~1430. STILL NO BM TODAY, BM MEDS ORDERED AND FIRST DOSES WERE GIVEN. C/O PAIN IN LUE; MEDICATED PER EMAR WITH ADEQUATE RELIEF. APPETITE OK.
[2022-08-04 04:50] LABS: BASOPHILS ABSOLUTE AUTO 0.02 K/mm3 (0.00-0.23); BASOPHILS PERCENT AUTO 0 % (0-2); EOSINOPHILS ABSOLUTE AUTO 0.09 K/mm3 (0.00-0.68); EOSINOPHILS PERCENT AUTO 1 % (0-6); Hematocrit 23.7 % (37.0-53.0); Hemoglobin 7.4 g/dL (13.5-17.5); IMMATURE GRAN ABSOLUTE AUTO 0.15 K/mm3 (0.00-0.10); IMMATURE GRAN PERCENT AUTO 1 % (0-1); LYMPHOCYTES ABSOLUTE AUTO 0.99 K/mm3 (0.84-5.20); LYMPHOCYTES PERCENT AUTO 8 % (21-46); MONOCYTES PERCENT AUTO 7 % (4-13); Mean Corpuscular HGB 29.7 pg (26.0-34.0); Mean Corpuscular HGB Conc 31.2 g/dL (31.5-36.5); Mean Corpuscular Volume 95 fL (80-100); Mean Platelet Volume 9.5 fL (9.1-12.4); NEUTROPHILS ABSOLUTE AUTO 9.87 K/mm3 (1.96-9.15); NEUTROPHILS PERCENT AUTO 83 % (41-73); NRBC ABSOLUTE 0.02 K/mm3 (0.00-0.02); NRBC Auto 0.2 /100 WBC (0.0-0.2); Platelet Count 201 K/mm3 (150-400); RDW Coefficient Variation 16.9 % (11.7-14.2); RDW Standard Deviation 59.3 fL (35.1-46.3); Red Blood Cell Count 2.49 M/mm3 (4.30-5.90); White Blood Cell Count 11.92 K/mm3 (4.00-11.30)
--- NOTE | 2022-08-04 04:52 | NUR ---
SHIFT SUMMARY PT HAS NO CURRENT COMPLAINTS. PT HAS CALL LIGHT WITHIN HIS REACH. RESTING QUIETLY MUCH OF THE NIGHT.
[2022-08-04 05:12] LABS: Albumin, Blood 2.1 g/dL (3.4-5.0); Anion Gap 6 mmol/L (6-16); Blood Urea Nitrogen 41 mg/dL (8-24); Bun/Creatinine Ratio 33.6 (12.0-20.0); CO2, Blood 35 mmol/L (21-32); Calcium, Blood 8.5 mg/dL (8.5-10.1); Chloride, Blood 95 mmol/L (98-108); Creatinine, Blood 1.22 mg/dL (0.60-1.20); Glomerular Filtration Rate 66 (60-); Glucose, Blood 100 mg/dL (70-99); Phosphorus, Blood 3.4 mg/dL (2.5-4.9); Potassium, Blood 4.1 mmol/L (3.5-5.5); Sodium, Blood 136 mmol/L (136-145)
[2022-08-04 13:31] LABS: Source, Urine Foley catheter
[2022-08-04 13:35] LABS: Appearance, Urine Clear (Clear); Bilirubin, Urine Neg (Neg); Blood, Urine Neg (Neg); Color, Urine Yellow (P-Yellow); Glucose Qualitative, Urine Neg (Neg); Ketones, Urine Neg (Neg); Leukocyte Esterase, Urine Neg (Neg); Nitrite, Urine Neg (Neg); Protein, Urine Neg (Neg); Urobilinogen, Urine NORM (Normal)
[2022-08-04 14:12] LABS: SARS-Cov-2 (COVID-19) PCR, MMC NEGATIVE (NEGATIVE)
--- NOTE | 2022-08-04 18:13 | NUR ---
PATIENT WAS SOB THIS AM, SO OXYGEN WAS PLACED BACK ON WITH NC PER REQUEST. A DAVIS CATH WAS PLACED DUE TO RETENTION. HE WILL BE LEAVING WITH THE DAVIS WHEN HE GOES TO SNF TOMORROW. PATIENTS DISCHARGE WAS DELAYED DUE TO NOT HAVING A GURNY TO TRANSPORT. 1800 DOSE OF MIDRODINE CAN BE GIVEN LATER BECAUSE THE DOSE BEFORE THE 1800 WAS GIVEN LATE. LS ARE COURSE-PATIENT IS PLEASANT. MEDICATIONS WERE ADJUSTED THIS SHIFT.
--- NOTE | 2022-08-04 19:35 | NUR ---
RECEIVED BEDSIDE REPORT FROM ZARI RN. PT SITTING UP IN BED. RESP EVEN ON 2L VIA NC. NO NEEDS AT THIS TIME. WILL PROVIDE CARE T/O SHIFT. CALL LT IN REACH.
--- NOTE | 2022-08-04 22:00 | NUR ---
ASSISTED VINYL FLOORING INSTALLER WITH REPOSITIONING PT. PT FLOATED ON PILLOWS AND BLE ELEVATED WITH PILLOW. LEFT ARM ELEVATED ON PILLOW. DAVIS PATENT AND DRAINING. NO OTHER NEEDS. CALL LT IN REACH. BED ALARM ON.
--- NOTE | 2022-08-05 00:20 | NUR ---
MEDICATED PT FOR ALL OVER PAIN. WILL REASSESS FOR THERAPEUTIC RESULTS. CALL LT IN REACH. BED ALARM ON.
--- NOTE | 2022-08-05 02:24 | NUR ---
PT RESTING QUIETLY. CALL LT IN REACH. BED ALARM ON.
--- NOTE | 2022-08-05 04:00 | NUR ---
PT RESTING. HOB ELEVATED PER PT REQUEST. NO NEEDS AT THIS TIME. CALL LT IN REACH. BED ALARM ON.
--- NOTE | 2022-08-05 05:05 | NUR ---
SHIFT SUMMARY: PT RESTED WELL. ON 2L VIA NC. DAVIS PATENT AND DRAINING TO GRAVITY. CONTINUES TO HAVE PITTING IN EDEMA IN BLE. LEGS HAVE BEEN ELEVATED T/O SHIFT. NO ACUTE CHANGES. PLAN IS TO DISCHARGE TO [facility] TODAY VIA GURNEY TRANSPORT. WILL CONTINUE TO PROVIDE CARE UNTIL SHIFT REPORT TO ONCOMING NURSE.
--- NOTE | 2022-08-05 06:21 | NUR ---
PT RESTING QUIETLY. HOB ELEVATED FOR COMFORT. CALL LT IN REACH. BED ALARM ON.
[2022-08-05] MEDS ORDERED: FOLI1 PO (10:03)
[2022-08-05] MEDS ORDERED: SENN187 PO (10:03)
[2022-08-05] MEDS ORDERED: IPRAT-ALBUT 0.5-3 ML INH (10:04)
[2022-08-05] MEDS ORDERED: MIDO5 PO (10:05)
[2022-08-05] MEDS ORDERED: ONDA4 PO (10:06)
[2022-08-05] MEDS ORDERED: OXYC5 PO (10:06)
[2022-08-05] MEDS ORDERED: POLYETHYLENE G500 G1 PO (10:06)
[2022-08-05] MEDS ORDERED: Prednisone10 MG PO (10:07)
[2022-08-05] MEDS ORDERED: B-1100 M1 PO (10:07)
[2022-08-10] MEDS ORDERED: ESCI20 PO (19:31)
== END 2022-08-05 10:55 | DRG 867 ==
LOC: ER 10:10 → ICUE 16:45 → MEDS 16:45 → ICUW 16:45 → ICUE 19:43 → PCU 07-24 13:42 → MEDS 07-27 18:15
PROVIDERS: Emergency Medicine; Family Medicine; Internal Medicine Critical Care Medicine; ADMIT Internal Medicine
PROC: 02HV33Z Insertion of Infusion Device into Superior Vena Cava, Percutaneous Approach (ICD-10-PCS; principal; 2022-07-23)
PROC: 3E033XZ Introduction of Vasopressor into Peripheral Vein, Percutaneous Approach (ICD-10-PCS; 2022-07-23)
DX: A28.0 Pasteurellosis (principal); I50.33 Acute on chronic diastolic (congestive) heart failure; J96.01 Acute respiratory failure with hypoxia; R65.21 Severe sepsis with septic shock; N17.9 Acute kidney failure, unspecified; I48.20 Chronic atrial fibrillation, unspecified; J44.1 Chronic obstructive pulmonary disease with (acute) exacerbation; L08.89 Other specified local infections of the skin and subcutaneous tissue; I25.10 Atherosclerotic heart disease of native coronary artery without angina pectoris; K21.9 Gastro-esophageal reflux disease without esophagitis; F41.9 Anxiety disorder, unspecified; Z95.1 Presence of aortocoronary bypass graft; Z20.822 Contact with and (suspected) exposure to COVID-19; Z66 Do not resuscitate; M25.542 Pain in joints of left hand; M25.541 Pain in joints of right hand; M25.531 Pain in right wrist; Z95.2 Presence of prosthetic heart valve; E88.09 Other disorders of plasma-protein metabolism, not elsewhere classified; G47.00 Insomnia, unspecified; Z98.890 Other specified postprocedural states; Z87.891 Personal history of nicotine dependence; Z79.899 Other long term (current) drug therapy; D69.6 Thrombocytopenia, unspecified; F32.9 Major depressive disorder, single episode, unspecified; F10.20 Alcohol dependence, uncomplicated; Z79.01 Long term (current) use of anticoagulants; G25.81 Restless legs syndrome
CPT/HCPCS: 0241U; 36415; 36556; 70450; 71045; 71260; 73090; 73120; 74176; 76700; 76857; 80048; 80053; 80069; 81001; 81003; 82607; 82746; 83735; 83880; 84484; 84550; 85025; 87040; 87077; 87086; 92526; 92610; 93005; 93010; 93306; 94640; 94660; 94664; 94760; 94762; 96365-59; 96366-59; 96375-59; 97110; 97162; 97166; 97530; 97535; 99291-25; 99292; A9270; J0696; J1720; J1940; J3370; J7030; J7050; J7060; J7512; P9047; Q9967; U0004

== ENCOUNTER 2022-08-07 13:07 | Emergency (ER) | payer OTHER ==
[~2022-08-07] VITALS: Ht 188 cm; Wt 94.8 kg
[~2022-08-07 13:07] MED LIST changes: +B-1100 M1 PO; +FOLI1 PO; +IPRAT-ALBUT 0.5-3 ML INH; +MIDO5 PO; +ONDA4 PO; +OXYC5 PO; +POLYETHYLENE G500 G1 PO; +Prednisone10 MG PO; +SENN187 PO
[2022-08-07 14:16] LABS: BASOPHILS ABSOLUTE AUTO 0.03 K/mm3 (0.00-0.23); BASOPHILS PERCENT AUTO 0 % (0-2); EOSINOPHILS ABSOLUTE AUTO 0.05 K/mm3 (0.00-0.68); EOSINOPHILS PERCENT AUTO 0 % (0-6); Hematocrit 23.7 % (37.0-53.0); Hemoglobin 7.5 g/dL (13.5-17.5); IMMATURE GRAN ABSOLUTE AUTO 0.07 K/mm3 (0.00-0.10); IMMATURE GRAN PERCENT AUTO 1 % (0-1); LYMPHOCYTES ABSOLUTE AUTO 0.31 K/mm3 (0.84-5.20); LYMPHOCYTES PERCENT AUTO 3 % (21-46); MONOCYTES ABSOLUTE AUTO 0.55 K/mm3 (0.16-1.47); MONOCYTES PERCENT AUTO 4 % (4-13); Mean Corpuscular HGB 29.5 pg (26.0-34.0); Mean Corpuscular HGB Conc 31.6 g/dL (31.5-36.5); Mean Corpuscular Volume 93 fL (80-100); Mean Platelet Volume 9.4 fL (9.1-12.4); NEUTROPHILS ABSOLUTE AUTO 11.42 K/mm3 (1.96-9.15); NEUTROPHILS PERCENT AUTO 92 % (41-73); NRBC ABSOLUTE 0.02 K/mm3 (0.00-0.02); NRBC Auto 0.2 /100 WBC (0.0-0.2); Platelet Count 265 K/mm3 (150-400); RDW Coefficient Variation 16.9 % (11.7-14.2); RDW Standard Deviation 57.1 fL (35.1-46.3); Red Blood Cell Count 2.54 M/mm3 (4.30-5.90); White Blood Cell Count 12.43 K/mm3 (4.00-11.30)
[2022-08-07 14:38] LABS: Albumin, Blood 2.3 g/dL (3.4-5.0); Albumin/Globulin Ratio 0.6 (0.8-1.8); Bun/Creatinine Ratio 27.6 (12.0-20.0); Calcium, Blood 8.8 mg/dL (8.5-10.1); Creatinine, Blood 1.23 mg/dL (0.60-1.20); Potassium, Blood 3.4 mmol/L (3.5-5.5); Total Protein, Blood 6.3 g/dL (6.4-8.2)
[2022-08-07] MEDS ORDERED: LAVAP4L PO (17:00)
[2022-08-10] MEDS ORDERED: ESCI20 PO (19:31)
== END 2022-08-07 17:50 | disposition home or self-care (01) ==
LOC: ER 13:07
PROVIDERS: Emergency Medicine
DX: K59.00 Constipation, unspecified (principal); I12.9 Hypertensive chronic kidney disease with stage 1 through stage 4 chronic kidney disease, or unspecified chronic kidney disease; I50.9 Heart failure, unspecified; J44.9 Chronic obstructive pulmonary disease, unspecified; K21.9 Gastro-esophageal reflux disease without esophagitis; I25.10 Atherosclerotic heart disease of native coronary artery without angina pectoris; Z79.899 Other long term (current) drug therapy; Z79.01 Long term (current) use of anticoagulants; Z79.52 Long term (current) use of systemic steroids; Z95.1 Presence of aortocoronary bypass graft
CPT/HCPCS: 36415; 71045; 74177; 80053; 83880; 84484; 85025; 93005; 93010; 99284-25; Q9967

== ENCOUNTER 2022-12-23 07:38 | Inpatient (IN) | payer OTHER, MEDICARE ==
[~2022-12-23] VITALS: Ht 172.7 cm; Wt 96.5 kg
[~2022-12-23 07:38] MED LIST changes: +ESCI20 PO; +LAVAP4L PO
[2022-12-23 08:10] LABS: BASOPHILS ABSOLUTE AUTO 0.03 K/mm3 (0.00-0.23); BASOPHILS PERCENT AUTO 0 % (0-2); EOSINOPHILS ABSOLUTE AUTO 0.12 K/mm3 (0.00-0.68); EOSINOPHILS PERCENT AUTO 1 % (0-6); Hemoglobin 9.8 g/dL (13.5-17.5); IMMATURE GRAN ABSOLUTE AUTO 0.24 K/mm3 (0.00-0.10); IMMATURE GRAN PERCENT AUTO 1 % (0-1); LYMPHOCYTES ABSOLUTE AUTO 1.45 K/mm3 (0.84-5.20); LYMPHOCYTES PERCENT AUTO 8 % (21-46); MONOCYTES ABSOLUTE AUTO 1.37 K/mm3 (0.16-1.47); MONOCYTES PERCENT AUTO 8 % (4-13); Mean Corpuscular HGB 21.5 pg (26.0-34.0); Mean Corpuscular Volume 77 fL (80-100); NEUTROPHILS ABSOLUTE AUTO 14.85 K/mm3 (1.96-9.15); NEUTROPHILS PERCENT AUTO 82 % (41-73); NRBC ABSOLUTE 0.05 K/mm3 (0.00-0.02); NRBC Auto 0.3 /100 WBC (0.0-0.2); Platelet Count 235 K/mm3 (150-400); RDW Standard Deviation 62.3 fL (35.1-46.3); Red Blood Cell Count 4.56 M/mm3 (4.30-5.90); White Blood Cell Count 18.06 K/mm3 (4.00-11.30)
[2022-12-23 08:31] LABS: Albumin, Blood 3.1 g/dL (3.4-5.0); Albumin/Globulin Ratio 0.8 (0.8-1.8); Bilirubin, Total 0.8 mg/dL (0.1-1.0); Calcium, Blood 8.7 mg/dL (8.5-10.1); Creatinine, Blood 1.03 mg/dL (0.60-1.20); Globulin, Blood 3.7 g/dL (2.2-4.0); Potassium, Blood 3.9 mmol/L (3.5-5.5); Total Protein, Blood 6.8 g/dL (6.4-8.2)
[2022-12-23 09:46] LABS: Influenza A, PCR NEGATIVE (NEGATIVE); Influenza B, PCR NEGATIVE (NEGATIVE); Resp Syncytial Virus, PCR NEGATIVE (NEGATIVE); SARS-Cov-2 (COVID-19) PCR, MMC NEGATIVE (NEGATIVE)
--- NOTE | 2022-12-23 18:55 | NUR ---
DR RHODES STATES TAKE NITRO PATCH OFF AT 12 HRS. 20:00
--- NOTE | 2022-12-23 19:23 | NUR ---
LEG WRAP PER DR RHODES PLACE NON ADHEARANT PADS ON LEGS WHERE WEEPING SINDY BANDAGE WRAP TO HOLD.
--- NOTE | 2022-12-23 19:52 | NUR ---
PT PLEASATNT SINCE ADMIT. NO C/O PAIN. LEGS WRAPPED PER DR RHODES. ALBUMIN AND LASIX GIVEN THIS VICKI. O2 AT 1-2 LITER FOR SATS >95%. PT STATES FEELS SOME BETTER. LEGS STILL +3 THIS AFT. WOUNDS ON LEGS BEING TREATED PER FAMILY DR. MCGREGOR IN CHARTS. NO NEW CONCERNS NOTED. WILL RETURN TO [facility] AT DISCHARGE. STATES USES WHEELCHAIR TO TRANSFER TO BATHROOM AT HOME. BED IN LOW POSTION, CALL LITE IN REACH, CALLS APPROP
[2022-12-24 05:28] LABS: BASOPHILS ABSOLUTE AUTO 0.01 K/mm3 (0.00-0.23); BASOPHILS PERCENT AUTO 0 % (0-2); EOSINOPHILS PERCENT AUTO 0 % (0-6); Hematocrit 29.7 % (37.0-53.0); Hemoglobin 8.6 g/dL (13.5-17.5); IMMATURE GRAN ABSOLUTE AUTO 0.11 K/mm3 (0.00-0.10); IMMATURE GRAN PERCENT AUTO 1 % (0-1); LYMPHOCYTES ABSOLUTE AUTO 0.26 K/mm3 (0.84-5.20); LYMPHOCYTES PERCENT AUTO 2 % (21-46); MONOCYTES ABSOLUTE AUTO 0.12 K/mm3 (0.16-1.47); MONOCYTES PERCENT AUTO 1 % (4-13); Mean Corpuscular HGB 21.5 pg (26.0-34.0); Mean Corpuscular Volume 74 fL (80-100); Mean Platelet Volume 10.2 fL (9.1-12.4); NEUTROPHILS ABSOLUTE AUTO 13.96 K/mm3 (1.96-9.15); NEUTROPHILS PERCENT AUTO 97 % (41-73); Platelet Count 205 K/mm3 (150-400); RDW Coefficient Variation 22.9 % (11.7-14.2); RDW Standard Deviation 59.7 fL (35.1-46.3); White Blood Cell Count 14.46 K/mm3 (4.00-11.30)
[2022-12-24 06:04] LABS: Albumin, Blood 2.9 g/dL (3.4-5.0); Albumin/Globulin Ratio 0.9 (0.8-1.8); Bilirubin, Total 1.4 mg/dL (0.1-1.0); Bun/Creatinine Ratio 34.2 (12.0-20.0); Calcium, Blood 8.6 mg/dL (8.5-10.1); Creatinine, Blood 1.14 mg/dL (0.60-1.20); Globulin, Blood 3.4 g/dL (2.2-4.0); Magnesium, Blood 2.4 mg/dL (1.6-2.4); Phosphorus, Blood 4.9 mg/dL (2.5-4.9); Potassium, Blood 4.3 mmol/L (3.5-5.5); Total Protein, Blood 6.3 g/dL (6.4-8.2)
--- NOTE | 2022-12-24 16:43 | NUR ---
SHIFT SUMMARY: PATIENT A&OX4. CALM, PLEASANT AND COOPERATIVE C CARE. USES CALL LIGHT APPROPRIATELY AND ABLE TO MAKE NEEDS KNOWN. PATIENT DENIES CP/PRESSURE THIS SHIFT. ON TELE, SR HR OF 80 BPM c BBB, PER VOYAGE MANAGEMENT SYSTEM OPERATOR OLIMPIA YUEN. PATIENT ON O2 1L VIA NC c SPO2 OF 98% BEGINNING OF SHIFT. AT AROUND NOON PATIENT WAS PLACED ON RA. OXYGENATION WAS MONITORED T/O THIS PROCESS. O2 WAS RECHECKED AT AROUND 1240 PATIENT O2 WAS 94% ON RA. PATIENT HAS BEEN ON RA c OXYGENATION RANGES 93-94%. DENIES SOB, RR EVEN AND UNLABORED. PATIENT HAS BEEN SITTING UP IN THE RECLINER CHAIR c BLE ELEVATED ON PILLOWS T/O SHIFT. PATIENT PARTICIPATE c PT MOBILITY EARLIER THIS AM. AMBULATES c SBA/1 ASSIST, FWW. PER PT PATIENT AT BASELINE LEVEL FUNCTIONING AND NOT IN NEED OF SKILLED PT SERVICES AT THIS TIME. PATIENT HAS PLUS 3 DEEP EDEMA FROM HIPS TO BLE. SINDY WRAP TO BLE'S. RECEIVED SCHEDULED MEDS PER EMAR. PATIENT ON FR 1200. USES URINAL INDEPENDENTLY. VITAL SIGNS REVIEWED. IV TO L HAND AND R FOREARM SALINE LOCKED. CALL LIGHT IN REACH.
[2022-12-25 05:31] LABS: BASOPHILS ABSOLUTE AUTO 0.01 K/mm3 (0.00-0.23); BASOPHILS PERCENT AUTO 0 % (0-2); EOSINOPHILS PERCENT AUTO 0 % (0-6); Hematocrit 29.3 % (37.0-53.0); Hemoglobin 8.5 g/dL (13.5-17.5); IMMATURE GRAN ABSOLUTE AUTO 0.07 K/mm3 (0.00-0.10); IMMATURE GRAN PERCENT AUTO 1 % (0-1); LYMPHOCYTES ABSOLUTE AUTO 0.28 K/mm3 (0.84-5.20); LYMPHOCYTES PERCENT AUTO 3 % (21-46); MONOCYTES ABSOLUTE AUTO 0.16 K/mm3 (0.16-1.47); MONOCYTES PERCENT AUTO 2 % (4-13); Mean Corpuscular HGB 21.5 pg (26.0-34.0); Mean Corpuscular Volume 74 fL (80-100); Mean Platelet Volume 10.2 fL (9.1-12.4); NEUTROPHILS PERCENT AUTO 95 % (41-73); NRBC ABSOLUTE 0.02 K/mm3 (0.00-0.02); NRBC Auto 0.2 /100 WBC (0.0-0.2); Platelet Count 202 K/mm3 (150-400); RDW Coefficient Variation 22.9 % (11.7-14.2); RDW Standard Deviation 60.4 fL (35.1-46.3); Red Blood Cell Count 3.95 M/mm3 (4.30-5.90); White Blood Cell Count 10.52 K/mm3 (4.00-11.30)
[2022-12-25 05:43] LABS: Bun/Creatinine Ratio 48.7 (12.0-20.0); Creatinine, Blood 1.17 mg/dL (0.60-1.20); Potassium, Blood 4.1 mmol/L (3.5-5.5)
--- NOTE | 2022-12-25 06:28 | NUR ---
PT IS A&04, SB TO BSC, USES URINAL, RAKENDRICK CDI, PT HAS 1L LEFT OF FLUID RESTRICTION FOR TODAY, VSS, NO COMPLAINTS OF DISCOMFORT OVERNIGHT, CONTINUE POC
--- NOTE | 2022-12-25 15:51 | NUR ---
SHIFT SUMMARY: PATIENT A&OX4. CALM, PLEASANT AND COOPERTAIVE c CARE. USES CALL LIGHT APPROPRIATELY AND ABLE TO MAKE NEEDS KNOWN. AT AROUND 1130, PATIENT REPORT OF LOWER BACK PAIN 7/10 ACCOMPANIED c CHEST PRESSURE. PER PATIENT IT'S NOT NEW TO HIM HE HAD THIS EPISODE PRIOR TO ADMISSION. VITAL SIGNS TAKEN; BP 157/103 c HR OF 93 BPM. PATIENT ON TELE, CALLED COMMERCIAL REAL ESTATE LENDER REGARDING PATIENT COMPLAIN. PER COMMERCIAL REAL ESTATE LENDER, HAKAN PATIENT HAS BEEN IN SR HR RANGES 75-90'S c BBB AND NO CHANGES SINCE YESTREDAY. PATIENT WAS MEDICATED c OXYCODONE FOR BACK PAIN. PATIENT REPORTS PAIN DOWN TO 4/10. PATIENT WAS TRYING TO HAVE BM TODAY BUT NO RESULT SO FAR. AMBULATES TO BATHROOM c SBA, FWW AND GAITBELT. PATIENT REPORTS SOB c AMBULATION, O2 DROPPED TO 91-92% ON RA AND SOON PATIENT SITTING UP IN THE RECLINER CHAIR O2 RECOVERED RIGHT AWAY AND BACK TO 95-96% ON RA. PATIENT STAYED IN BED FOR BREAKFAST AND SITTING UP IN THE RECLINER CHAIR FOR LUNCH. PATIENT HAS BEEN TOLERATING SITTING UP IN THE RECLINER CHAIR c BLE ELEVATED ON PILLOWS T/O SHIFT. PATIENT CONTINENT OF URINE AND STOOL, USES URINAL INDEPENDENTLY. PATIENT STILL ON FR 1200, c 300 CC LEFT FOR NOC SHIFT. RECEIVED SCHEDULED MEDS PER EMAR. VITAL SIGNS REVIEWED. CALL LIGHT IN REACH.
[2022-12-26] MEDS ORDERED: FUROSEMIDE40 MG PO (02:29)
[2022-12-26] MEDS ORDERED: WIXELA 500-501 EAC1 INH (02:30)
[2022-12-26] MEDS ORDERED: AZITHROMYCIN250 MG PO (02:31)
[2022-12-26] MEDS ORDERED: Potassium Chlo20 ME1 PO (02:32)
[2022-12-26] MEDS ORDERED: AMOX-CLAV 875-1 EAC5 PO (02:32)
[2022-12-26] MEDS ORDERED: CLINGEL TOP (02:35)
[2022-12-26 05:29] LABS: BASOPHILS PERCENT AUTO 0 % (0-2); EOSINOPHILS PERCENT AUTO 0 % (0-6); Hemoglobin 8.3 g/dL (13.5-17.5); IMMATURE GRAN ABSOLUTE AUTO 0.08 K/mm3 (0.00-0.10); IMMATURE GRAN PERCENT AUTO 1 % (0-1); LYMPHOCYTES ABSOLUTE AUTO 0.25 K/mm3 (0.84-5.20); LYMPHOCYTES PERCENT AUTO 2 % (21-46); MONOCYTES ABSOLUTE AUTO 0.24 K/mm3 (0.16-1.47); MONOCYTES PERCENT AUTO 2 % (4-13); Mean Corpuscular HGB 21.3 pg (26.0-34.0); Mean Corpuscular HGB Conc 28.6 g/dL (31.5-36.5); Mean Corpuscular Volume 75 fL (80-100); Mean Platelet Volume 10.4 fL (9.1-12.4); NEUTROPHILS ABSOLUTE AUTO 9.87 K/mm3 (1.96-9.15); NEUTROPHILS PERCENT AUTO 95 % (41-73); NRBC ABSOLUTE 0.02 K/mm3 (0.00-0.02); NRBC Auto 0.2 /100 WBC (0.0-0.2); Platelet Count 188 K/mm3 (150-400); RDW Coefficient Variation 22.9 % (11.7-14.2); RDW Standard Deviation 60.4 fL (35.1-46.3); Red Blood Cell Count 3.89 M/mm3 (4.30-5.90); White Blood Cell Count 10.44 K/mm3 (4.00-11.30)
--- NOTE | 2022-12-26 05:51 | NUR ---
PT IS A&O4, SB TO CHAIR USES URINAL, VSS, RA, PRN PAIN MEDICATION GIVEN, CONTINUE POC
[2022-12-26 06:06] LABS: Bun/Creatinine Ratio 47.7 (12.0-20.0); Calcium, Blood 9.2 mg/dL (8.5-10.1); Creatinine, Blood 1.3 mg/dL (0.60-1.20); Potassium, Blood 3.7 mmol/L (3.5-5.5)
--- NOTE | 2022-12-26 08:00 | NUR ---
pt laying in bed watching tv, a/ox3, cooperative with care, follows commands well, reports back pain, will medicate, lungs are clear in upper cobb, dim in bases, resp even and unlabored, reports an occ productive cough, will send sputum when available, on r/a, hrr, running st per tele, see strip, 3+ edema noted to b/l le, cap refill <3sec, vs stable, afebrile, piv site to rwrist, site is clear and patent, btx4, abd flat soft nontender, voids without diff via urinal, skin has wounds to b/l le, unoboots in place, anny pickens, call light in reach.
--- NOTE | 2022-12-26 18:12 | NUR ---
Pt sitting up in a chair watching tv, and eating dinner, denies complaints, no needs and no acute changes this shift, call light in reach.
[2022-12-27 04:20] LABS: BASOPHILS ABSOLUTE AUTO 0.01 K/mm3 (0.00-0.23); BASOPHILS PERCENT AUTO 0 % (0-2); EOSINOPHILS PERCENT AUTO 0 % (0-6); Hematocrit 29.3 % (37.0-53.0); Hemoglobin 8.4 g/dL (13.5-17.5); IMMATURE GRAN ABSOLUTE AUTO 0.12 K/mm3 (0.00-0.10); IMMATURE GRAN PERCENT AUTO 1 % (0-1); LYMPHOCYTES ABSOLUTE AUTO 0.19 K/mm3 (0.84-5.20); LYMPHOCYTES PERCENT AUTO 2 % (21-46); MONOCYTES ABSOLUTE AUTO 0.35 K/mm3 (0.16-1.47); MONOCYTES PERCENT AUTO 3 % (4-13); Mean Corpuscular HGB 21.3 pg (26.0-34.0); Mean Corpuscular HGB Conc 28.7 g/dL (31.5-36.5); Mean Corpuscular Volume 74 fL (80-100); NEUTROPHILS ABSOLUTE AUTO 12.04 K/mm3 (1.96-9.15); NEUTROPHILS PERCENT AUTO 95 % (41-73); NRBC ABSOLUTE 0.02 K/mm3 (0.00-0.02); NRBC Auto 0.2 /100 WBC (0.0-0.2); Platelet Count 191 K/mm3 (150-400); RDW Coefficient Variation 22.7 % (11.7-14.2); RDW Standard Deviation 59.2 fL (35.1-46.3); Red Blood Cell Count 3.95 M/mm3 (4.30-5.90); White Blood Cell Count 12.71 K/mm3 (4.00-11.30)
--- NOTE | 2022-12-27 05:26 | NUR ---
PT IS A&O4, SB TO CHAIR USING URINAL, RA, VSS, NO COMPLAINTS OF PAIN OR DISCOMFORT OVERNIGHT CONTINUE POC
[2022-12-27 06:47] LABS: Albumin, Blood 4.4 g/dL (3.4-5.0); Albumin/Globulin Ratio 1.5 (0.8-1.8); Bun/Creatinine Ratio 45.6 (12.0-20.0); Calcium, Blood 9.4 mg/dL (8.5-10.1); Creatinine, Blood 1.36 mg/dL (0.60-1.20); Potassium, Blood 3.7 mmol/L (3.5-5.5); Total Protein, Blood 7.4 g/dL (6.4-8.2)
--- NOTE | 2022-12-27 13:10 | NUR ---
NOTE: SPOKE WITH KARTIK, NURSE AT [facility], AND PROVIDED UPDATES ON THE PT.
--- NOTE | 2022-12-27 16:56 | NUR ---
SHIFT SUMMARY NO ACUTE CHANGES THIS SHIFT. AOX4, ABLE TO MAKE NEEDS KNOWN. PT RECEIVED A REPEAT CHEST XR THIS SHIFT TO OBSERVE PROGRESS. BLE DRESSINGS WERE ALSO CHANGED THIS SHIFT. PT SAT UP IN THE CHAIR MOST OF THE START OF THE SHIFT AND HAS PROGRESSED BACK TO THE BED JUST BEFORE LUNCH. HE IS USING THE URINAL INDEPENDENTLY. WILL REPORT TO ONCOMING NURSE.
--- NOTE | 2022-12-28 05:02 | NUR ---
PT IS A&O4, 1 ASSIST TO THE BSC, VSS,RA, 2L NC PRN, NO COMPLAINTS OF PAIN OR DISCOMFORT THIS SHIFT, CONTINUE POC
[2022-12-28 05:12] LABS: BASOPHILS ABSOLUTE AUTO 0.02 K/mm3 (0.00-0.23); BASOPHILS PERCENT AUTO 0 % (0-2); EOSINOPHILS PERCENT AUTO 0 % (0-6); Hematocrit 28.8 % (37.0-53.0); Hemoglobin 8.4 g/dL (13.5-17.5); IMMATURE GRAN ABSOLUTE AUTO 0.07 K/mm3 (0.00-0.10); IMMATURE GRAN PERCENT AUTO 1 % (0-1); LYMPHOCYTES ABSOLUTE AUTO 0.36 K/mm3 (0.84-5.20); LYMPHOCYTES PERCENT AUTO 3 % (21-46); MONOCYTES ABSOLUTE AUTO 0.68 K/mm3 (0.16-1.47); MONOCYTES PERCENT AUTO 5 % (4-13); Mean Corpuscular HGB 21.8 pg (26.0-34.0); Mean Corpuscular HGB Conc 29.2 g/dL (31.5-36.5); Mean Corpuscular Volume 75 fL (80-100); Mean Platelet Volume 10.3 fL (9.1-12.4); NEUTROPHILS ABSOLUTE AUTO 13.15 K/mm3 (1.96-9.15); NEUTROPHILS PERCENT AUTO 92 % (41-73); NRBC ABSOLUTE 0.05 K/mm3 (0.00-0.02); NRBC Auto 0.4 /100 WBC (0.0-0.2); Platelet Count 179 K/mm3 (150-400); RDW Coefficient Variation 23.1 % (11.7-14.2); RDW Standard Deviation 60.7 fL (35.1-46.3); Red Blood Cell Count 3.86 M/mm3 (4.30-5.90); White Blood Cell Count 14.28 K/mm3 (4.00-11.30)
[2022-12-28 05:40] LABS: Albumin, Blood 3.8 g/dL (3.4-5.0); Albumin/Globulin Ratio 1.1 (0.8-1.8); Bilirubin, Total 0.8 mg/dL (0.1-1.0); Bun/Creatinine Ratio 44.8 (12.0-20.0); Calcium, Blood 9.6 mg/dL (8.5-10.1); Creatinine, Blood 1.05 mg/dL (0.60-1.20); Globulin, Blood 3.4 g/dL (2.2-4.0); Potassium, Blood 3.6 mmol/L (3.5-5.5); Total Protein, Blood 7.2 g/dL (6.4-8.2)
--- NOTE | 2022-12-28 18:06 | NUR ---
SHIFT SUMMARY PT AOX4 AND PLESANT, COOPERATIVE. HE HAS BEEN UP IN THE CHAIR MOST OF THE SHIFT, WORKING WITH PT AND OT. HE HAS NOT HAD A BM IN A COUPLE DAYS, CONTACTED THE DR AND NEW ORDERS WERE PUT ON HIS EMAR. PT'S BLE DRESSINGS WERE CHANGED THIS SHIFT. HE REMAINS ON A FLUID RESTRICTION OF 1200 ML. WILL REPORT TO ONCOMING NURSE.
--- NOTE | 2022-12-29 05:22 | NUR ---
PRIVATE BRANCH EXCHANGE SERVICE ADVISOR SUMMARY PT A/OX4; SLOW TO RESPOND; ABLE TO FOLLOW DIRECTIONS. PLEASANT AND COOPERATIVE. NO ACUTE CHANGES THIS SHIFT. ENCOURAGED PT TO TAKE COLACE W/2100 MEDS--EDUCATION ON STOOL SOFTNERS. NO BM THIS SHIFT. CHANGES DRESSING TO LLE THIS SHIFT; ABD PADS SATURATED WITH MOISTURE. MAINTAINED 1200 FLUID RESTRICTION. PT ASKED FOR FLUIDS MULTIPLE TIMES; REMINDERS/EDUCATION ON REASON FOR FLUID RESTRICTION. LUNG SOUNDS ARE COARSE W/EXPIRATIONS. LOOSE/MOIST COUGH--NON PRODUCTIVE. CALL LIGHT ACCESSIBLE.
[2022-12-29 05:51] LABS: BASOPHILS ABSOLUTE AUTO 0.01 K/mm3 (0.00-0.23); BASOPHILS PERCENT AUTO 0 % (0-2); EOSINOPHILS PERCENT AUTO 0 % (0-6); Hematocrit 27.8 % (37.0-53.0); Hemoglobin 8.2 g/dL (13.5-17.5); IMMATURE GRAN PERCENT AUTO 1 % (0-1); LYMPHOCYTES ABSOLUTE AUTO 0.45 K/mm3 (0.84-5.20); LYMPHOCYTES PERCENT AUTO 4 % (21-46); MONOCYTES ABSOLUTE AUTO 0.32 K/mm3 (0.16-1.47); MONOCYTES PERCENT AUTO 3 % (4-13); Mean Corpuscular HGB 21.5 pg (26.0-34.0); Mean Corpuscular HGB Conc 29.5 g/dL (31.5-36.5); Mean Corpuscular Volume 73 fL (80-100); NEUTROPHILS ABSOLUTE AUTO 10.04 K/mm3 (1.96-9.15); NEUTROPHILS PERCENT AUTO 92 % (41-73); NRBC ABSOLUTE 0.08 K/mm3 (0.00-0.02); NRBC Auto 0.7 /100 WBC (0.0-0.2); Platelet Count 155 K/mm3 (150-400); RDW Standard Deviation 59.8 fL (35.1-46.3); Red Blood Cell Count 3.81 M/mm3 (4.30-5.90); White Blood Cell Count 10.92 K/mm3 (4.00-11.30)
[2022-12-29 06:06] LABS: Mean Platelet Volume 10.2 fL (9.1-12.4)
[2022-12-29 09:31] LABS: Test Name CHEM PROF
[2022-12-29 12:58] LABS: Result SEE SEPERATE REPORT
--- NOTE | 2022-12-29 20:03 | NUR ---
SHIFT SUMMARY PTN WITH SOME PAIN TO CHEST AND RIB AREA, TREATED PER EMAR. PTN UP TO CHAIR MUCH OF DAY. REPORTED WEEPING CALVES, CLEAN, DRY, AND INTACT ABD WITH WRAPS. NOT CHANGED THIS SHIFT. NO ACUTE CHANGES. CONTINUE TO MONITOR.
--- NOTE | 2022-12-30 03:52 | NUR ---
DISK OPERATOR SUMMARY NO ACUTE CHANGES. PT A/OX4, PLEASANT/COOPERATIVE. ABLE TO MAKE NEEDS KNOWN. PT REMAINS ON 2L O2 NC. NO BM THIS SHIFT; DENIES DISCOMFORT OR FEELING CONSTIPATED. BANDAGES TO BLE CHANGED THIS SHIFT. RT DRESSING CDI; LEFT DRESSING WAS SATURATED W/COLORLESS MOISTURE; FLUIDS OBSERVED WEEPING THROUGH THE SKIN. VITAL SIGNS REVIEWED/STABLE. PT CALLING APPROPRIATELY; CALL LIGHT ACCESSIBLE.
[2022-12-30 05:29] LABS: BASOPHILS ABSOLUTE AUTO 0.01 K/mm3 (0.00-0.23); BASOPHILS PERCENT AUTO 0 % (0-2); EOSINOPHILS ABSOLUTE AUTO 0.01 K/mm3 (0.00-0.68); EOSINOPHILS PERCENT AUTO 0 % (0-6); Hematocrit 28.4 % (37.0-53.0); IMMATURE GRAN ABSOLUTE AUTO 0.09 K/mm3 (0.00-0.10); IMMATURE GRAN PERCENT AUTO 1 % (0-1); LYMPHOCYTES ABSOLUTE AUTO 0.38 K/mm3 (0.84-5.20); LYMPHOCYTES PERCENT AUTO 3 % (21-46); MONOCYTES ABSOLUTE AUTO 0.27 K/mm3 (0.16-1.47); MONOCYTES PERCENT AUTO 2 % (4-13); Mean Corpuscular HGB 21.1 pg (26.0-34.0); Mean Corpuscular HGB Conc 28.2 g/dL (31.5-36.5); Mean Corpuscular Volume 75 fL (80-100); NEUTROPHILS ABSOLUTE AUTO 10.34 K/mm3 (1.96-9.15); NEUTROPHILS PERCENT AUTO 93 % (41-73); NRBC ABSOLUTE 0.05 K/mm3 (0.00-0.02); NRBC Auto 0.5 /100 WBC (0.0-0.2); Platelet Count 153 K/mm3 (150-400); RDW Coefficient Variation 23.1 % (11.7-14.2); RDW Standard Deviation 61.4 fL (35.1-46.3)
[2022-12-30 05:54] LABS: Mean Platelet Volume 10.9 fL (9.1-12.4)
[2022-12-30 05:55] LABS: Albumin, Blood 4.9 g/dL (3.4-5.0); Albumin/Globulin Ratio 1.7 (0.8-1.8); Bilirubin, Total 1.3 mg/dL (0.1-1.0); Bun/Creatinine Ratio 53.1 (12.0-20.0); Calcium, Blood 10.3 mg/dL (8.5-10.1); Creatinine, Blood 1.45 mg/dL (0.60-1.20); Globulin, Blood 2.9 g/dL (2.2-4.0); Potassium, Blood 3.8 mmol/L (3.5-5.5); Total Protein, Blood 7.8 g/dL (6.4-8.2)
--- NOTE | 2022-12-30 20:14 | NUR ---
SHIFT SUMMARY PTN CONTINUES EDEMATOUS IN LOWER EXTREMITIES. LOWER LEGS WRAPPED WITH ABD PADS AND SINDY WRAPS, LEFT LEG WITH SOME WEEPING DUE TO EXTREME STRETCHING OF SKIN. ABDOMEN DISTENDED AND HARD. PTN REPORTED NO BM X1 WEEK. PTN ON BOWEL REGIMEN, TODAY ENEMA GIVEN, PRODUCED VERY LITTLE STOOL, BUT SMALL MOVING WORM-LIKE PIECE IN STOOL, SENT TO LAB. SAMPLE NOT SUFFICIENT. ORDER PLACED FOR OVA AND PARASITE NEXT STOOL. PLAN TO RETURN TO [facility] IN [place]. CONTINUE TO MONITOR.
--- NOTE | 2022-12-31 04:25 | NUR ---
SHIFT SUMMARY PATIENT HAD NO ACUTE CHANGES OBSERVED. AXOX 4 AND ONE ASSIST W/FWW GB TO BSC. USES URINAL AT BEDSIDE. PIV REMAINS INTACT. FLUID RESTRICTION 1,200 mL. ON TELEMETRY NSR BBB @ 68. DENIES CHEST PAIN, SOB, AND N/V. VSS/AFEBRILE. DRESSING TO BLE C/D/I. SLEPT MOST OF THE SHIFT. CALL LIGHT IN REACH. BED IN LOWEST POSITION. WILL CONTINUE TO MONITOR UNTIL DAY SHIFT NURSE ASSUMES CARE.
[2022-12-31 05:20] LABS: BASOPHILS ABSOLUTE AUTO 0.01 K/mm3 (0.00-0.23); BASOPHILS PERCENT AUTO 0 % (0-2); EOSINOPHILS PERCENT AUTO 0 % (0-6); Hematocrit 27.3 % (37.0-53.0); Hemoglobin 7.9 g/dL (13.5-17.5); IMMATURE GRAN ABSOLUTE AUTO 0.08 K/mm3 (0.00-0.10); IMMATURE GRAN PERCENT AUTO 1 % (0-1); LYMPHOCYTES ABSOLUTE AUTO 0.42 K/mm3 (0.84-5.20); LYMPHOCYTES PERCENT AUTO 4 % (21-46); MONOCYTES ABSOLUTE AUTO 0.36 K/mm3 (0.16-1.47); MONOCYTES PERCENT AUTO 3 % (4-13); Mean Corpuscular HGB 21.5 pg (26.0-34.0); Mean Corpuscular HGB Conc 28.9 g/dL (31.5-36.5); Mean Corpuscular Volume 74 fL (80-100); NEUTROPHILS PERCENT AUTO 92 % (41-73); NRBC ABSOLUTE 0.04 K/mm3 (0.00-0.02); NRBC Auto 0.4 /100 WBC (0.0-0.2); Platelet Count 159 K/mm3 (150-400); RDW Standard Deviation 60.9 fL (35.1-46.3); Red Blood Cell Count 3.68 M/mm3 (4.30-5.90); White Blood Cell Count 10.87 K/mm3 (4.00-11.30)
[2022-12-31 05:31] LABS: Mean Platelet Volume 10.1 fL (9.1-12.4)
[2022-12-31 05:54] LABS: Albumin/Globulin Ratio 1.9 (0.8-1.8); Bilirubin, Total 1.6 mg/dL (0.1-1.0); Bun/Creatinine Ratio 53.4 (12.0-20.0); Calcium, Blood 10.5 mg/dL (8.5-10.1); Creatinine, Blood 1.63 mg/dL (0.60-1.20); Globulin, Blood 2.7 g/dL (2.2-4.0); Potassium, Blood 3.6 mmol/L (3.5-5.5); Total Protein, Blood 7.7 g/dL (6.4-8.2)
--- NOTE | 2022-12-31 17:49 | NUR ---
SHIFT SUMMARY PT AOX4, COOPERATIVE AND CALLS TO MAKE HIS NEEDS KNOWN. ATTEMPTED TO HAVE A BM BUT ONLY PASSED GAS. PRUNE JUICE PROVIDED. PT HAS HAD NO C/O N/V/CP/SOB. WILL REPORT TO ONCOMING NURSE.
[2023-01-01 05:05] LABS: BASOPHILS ABSOLUTE AUTO 0.01 K/mm3 (0.00-0.23); BASOPHILS PERCENT AUTO 0 % (0-2); EOSINOPHILS ABSOLUTE AUTO 0.01 K/mm3 (0.00-0.68); EOSINOPHILS PERCENT AUTO 0 % (0-6); Hematocrit 27.7 % (37.0-53.0); IMMATURE GRAN PERCENT AUTO 1 % (0-1); LYMPHOCYTES ABSOLUTE AUTO 0.44 K/mm3 (0.84-5.20); LYMPHOCYTES PERCENT AUTO 4 % (21-46); MONOCYTES PERCENT AUTO 4 % (4-13); Mean Corpuscular HGB 21.4 pg (26.0-34.0); Mean Corpuscular HGB Conc 28.9 g/dL (31.5-36.5); Mean Corpuscular Volume 74 fL (80-100); NEUTROPHILS ABSOLUTE AUTO 9.35 K/mm3 (1.96-9.15); NEUTROPHILS PERCENT AUTO 91 % (41-73); NRBC ABSOLUTE 0.05 K/mm3 (0.00-0.02); NRBC Auto 0.5 /100 WBC (0.0-0.2); Platelet Count 154 K/mm3 (150-400); RDW Coefficient Variation 23.1 % (11.7-14.2); RDW Standard Deviation 60.7 fL (35.1-46.3); Red Blood Cell Count 3.74 M/mm3 (4.30-5.90); White Blood Cell Count 10.31 K/mm3 (4.00-11.30)
[2023-01-01 05:38] LABS: Albumin, Blood 5.1 g/dL (3.4-5.0); Albumin/Globulin Ratio 1.9 (0.8-1.8); Bilirubin, Total 1.9 mg/dL (0.1-1.0); Bun/Creatinine Ratio 52.6 (12.0-20.0); Calcium, Blood 10.4 mg/dL (8.5-10.1); Creatinine, Blood 1.71 mg/dL (0.60-1.20); Globulin, Blood 2.7 g/dL (2.2-4.0); Potassium, Blood 3.8 mmol/L (3.5-5.5); Total Protein, Blood 7.8 g/dL (6.4-8.2)
--- NOTE | 2023-01-01 18:02 | NUR ---
SHIFT SUMMARY NO ACUTE CHANGES, PT REMAINS AOX4. NO BM THIS SHIFT, NURSE GAVE PT PRUNE JUICE X2 AND HE PASSED GAS. DR. PEPE HAS A PLAN FOR THE PT TOMORROW IF NO BM OCCURS DURING LAMINATOR PREFORMS. DR. PEPE ALSO HELD HIS ORDER FOR LASIX THIS SHIFT, WILL POSSIBLY RESUME TOMORROW. WILL REPORT TO ONCOMING NURSE.
--- NOTE | 2023-01-02 08:02 | NUR ---
PATIENT AGAIN HAD A RATHER SLEEPLESS NIGHT. HE SITS UP IN BED WATCHING TV MOST OF THE EVENING. BRODERICK FINALLY HAD A HUGE SOFT STOOL AND SAMPLE FOR O&P WAS SENT TO THE LAB. (AWAITING RESULTS). MINIMAL COMPLAINTS OF PAIN. WHICH WERE BOTH RESOLVED TO A TOLERABLE LEVEL WITH OXYCODONE. ABD PAIN MUCH LESS AFTER LARGE B M
[2023-01-02 08:28] LABS: BASOPHILS ABSOLUTE AUTO 0.01 K/mm3 (0.00-0.23); BASOPHILS PERCENT AUTO 0 % (0-2); EOSINOPHILS ABSOLUTE AUTO 0.04 K/mm3 (0.00-0.68); EOSINOPHILS PERCENT AUTO 0 % (0-6); Hematocrit 27.3 % (37.0-53.0); Hemoglobin 7.8 g/dL (13.5-17.5); IMMATURE GRAN ABSOLUTE AUTO 0.08 K/mm3 (0.00-0.10); IMMATURE GRAN PERCENT AUTO 1 % (0-1); LYMPHOCYTES ABSOLUTE AUTO 0.54 K/mm3 (0.84-5.20); LYMPHOCYTES PERCENT AUTO 5 % (21-46); MONOCYTES ABSOLUTE AUTO 0.46 K/mm3 (0.16-1.47); MONOCYTES PERCENT AUTO 4 % (4-13); Mean Corpuscular HGB 21.5 pg (26.0-34.0); Mean Corpuscular HGB Conc 28.6 g/dL (31.5-36.5); Mean Corpuscular Volume 75 fL (80-100); Mean Platelet Volume 10.5 fL (9.1-12.4); NEUTROPHILS ABSOLUTE AUTO 9.68 K/mm3 (1.96-9.15); NEUTROPHILS PERCENT AUTO 90 % (41-73); NRBC ABSOLUTE 0.03 K/mm3 (0.00-0.02); NRBC Auto 0.3 /100 WBC (0.0-0.2); Platelet Count 147 K/mm3 (150-400); RDW Coefficient Variation 23.5 % (11.7-14.2); RDW Standard Deviation 62.9 fL (35.1-46.3); Red Blood Cell Count 3.62 M/mm3 (4.30-5.90); White Blood Cell Count 10.81 K/mm3 (4.00-11.30)
[2023-01-02 08:39] LABS: Albumin/Globulin Ratio 1.9 (0.8-1.8); Bilirubin, Total 1.9 mg/dL (0.1-1.0); Bun/Creatinine Ratio 49.4 (12.0-20.0); Calcium, Blood 10.1 mg/dL (8.5-10.1); Creatinine, Blood 1.76 mg/dL (0.60-1.20); Globulin, Blood 2.7 g/dL (2.2-4.0); Potassium, Blood 3.7 mmol/L (3.5-5.5); Total Protein, Blood 7.7 g/dL (6.4-8.2)
--- NOTE | 2023-01-02 18:04 | NUR ---
SHIFT SUMMARY NO ACUTE CHANGES THIS SHIFT. PT REMAINS AOX4. HAD ANOTHER BM THIS SHIFT. PLAN IS FOR THE PT TO POSSIBLY DISCHARGE TOMORROW. HE IS A 1-2 P ASSIST WITH A FWW. C/O PAIN AND MEDICATED PER THE EMAR. WILL REPORT TO THE ONCOMING NURSE.
[2023-01-03 06:31] LABS: BASOPHILS ABSOLUTE AUTO 0.01 K/mm3 (0.00-0.23); BASOPHILS PERCENT AUTO 0 % (0-2); EOSINOPHILS ABSOLUTE AUTO 0.02 K/mm3 (0.00-0.68); EOSINOPHILS PERCENT AUTO 0 % (0-6); Hematocrit 27.5 % (37.0-53.0); Hemoglobin 7.9 g/dL (13.5-17.5); IMMATURE GRAN ABSOLUTE AUTO 0.09 K/mm3 (0.00-0.10); IMMATURE GRAN PERCENT AUTO 1 % (0-1); LYMPHOCYTES ABSOLUTE AUTO 0.48 K/mm3 (0.84-5.20); LYMPHOCYTES PERCENT AUTO 5 % (21-46); MONOCYTES ABSOLUTE AUTO 0.47 K/mm3 (0.16-1.47); MONOCYTES PERCENT AUTO 5 % (4-13); Mean Corpuscular HGB 21.6 pg (26.0-34.0); Mean Corpuscular HGB Conc 28.7 g/dL (31.5-36.5); Mean Corpuscular Volume 75 fL (80-100); NEUTROPHILS ABSOLUTE AUTO 8.85 K/mm3 (1.96-9.15); NEUTROPHILS PERCENT AUTO 89 % (41-73); NRBC ABSOLUTE 0.02 K/mm3 (0.00-0.02); NRBC Auto 0.2 /100 WBC (0.0-0.2); Platelet Count 153 K/mm3 (150-400); RDW Coefficient Variation 23.8 % (11.7-14.2); RDW Standard Deviation 62.8 fL (35.1-46.3); Red Blood Cell Count 3.66 M/mm3 (4.30-5.90); White Blood Cell Count 9.92 K/mm3 (4.00-11.30)
[2023-01-03 06:41] LABS: Mean Platelet Volume 10.5 fL (9.1-12.4)
[2023-01-03 07:20] LABS: Albumin, Blood 5.3 g/dL (3.4-5.0); Albumin/Globulin Ratio 2.1 (0.8-1.8); Bilirubin, Total 2.1 mg/dL (0.1-1.0); Bun/Creatinine Ratio 48.9 (12.0-20.0); Calcium, Blood 10.5 mg/dL (8.5-10.1); Creatinine, Blood 1.86 mg/dL (0.60-1.20); Globulin, Blood 2.5 g/dL (2.2-4.0); Potassium, Blood 3.9 mmol/L (3.5-5.5); Total Protein, Blood 7.8 g/dL (6.4-8.2)
[2023-01-03 14:37] LABS: Percent Saturation 33.8 % (20.0-50.0); Phosphorus, Blood 3.4 mg/dL (2.5-4.9); Thyroid Stimulating Hormone 3.64 uIU/mL (0.360-4.800)
[2023-01-03 16:04] LABS: Source, Urine Clean Catch
[2023-01-03 16:14] LABS: Appearance, Urine Clear (Clear); Bilirubin, Urine Neg (Neg); Blood, Urine 2+ (Neg); Color, Urine Amber (P-Yellow); Glucose Qualitative, Urine Neg (Neg); Ketones, Urine Neg (Neg); Leukocyte Esterase, Urine 2+ (Neg); Nitrite, Urine Neg (Neg); Protein, Urine 3+ (Neg); Urobilinogen, Urine 1+ (Normal)
[2023-01-03 16:34] LABS: Bacteria Few /hpf; Squamous Epithelial Cells Few /hpf (Few)
--- NOTE | 2023-01-03 16:36 | NUR ---
EVENING NOTE PT AWAKE AND ALERT. HE SPENT MOST OF THE AFTERNOON UP INTHE RECLINER AT BEDSIDE. WALKED BACK TO BED FOR HIS RENAL U/S WITH 1 ASSIST. URINE SENT FOR THE ORDERED TESTS AT 1555. DENIED PAIN OR DISCOMFORT. EDEMA STABLE. BLE WRAPPED WITH SINDY WRAPS. LEGS ELEVATED MUCH HE CAN TOLERATE. GOOD APPETITE. CONTINUE POC.
[2023-01-04 05:29] LABS: BASOPHILS ABSOLUTE AUTO 0.01 K/mm3 (0.00-0.23); BASOPHILS PERCENT AUTO 0 % (0-2); EOSINOPHILS ABSOLUTE AUTO 0.01 K/mm3 (0.00-0.68); EOSINOPHILS PERCENT AUTO 0 % (0-6); Hemoglobin 7.7 g/dL (13.5-17.5); IMMATURE GRAN ABSOLUTE AUTO 0.07 K/mm3 (0.00-0.10); IMMATURE GRAN PERCENT AUTO 1 % (0-1); LYMPHOCYTES ABSOLUTE AUTO 0.43 K/mm3 (0.84-5.20); LYMPHOCYTES PERCENT AUTO 4 % (21-46); MONOCYTES ABSOLUTE AUTO 0.54 K/mm3 (0.16-1.47); MONOCYTES PERCENT AUTO 5 % (4-13); Mean Corpuscular HGB Conc 29.6 g/dL (31.5-36.5); Mean Corpuscular Volume 74 fL (80-100); NEUTROPHILS ABSOLUTE AUTO 9.73 K/mm3 (1.96-9.15); NEUTROPHILS PERCENT AUTO 90 % (41-73); NRBC ABSOLUTE 0.02 K/mm3 (0.00-0.02); NRBC Auto 0.2 /100 WBC (0.0-0.2); Platelet Count 152 K/mm3 (150-400); White Blood Cell Count 10.79 K/mm3 (4.00-11.30)
[2023-01-04 05:46] LABS: Mean Platelet Volume 10.3 fL (9.1-12.4)
[2023-01-04 06:17] LABS: Albumin, Blood 5.3 g/dL (3.4-5.0); Albumin/Globulin Ratio 2.1 (0.8-1.8); Bilirubin, Total 2.5 mg/dL (0.1-1.0); Bun/Creatinine Ratio 47.5 (12.0-20.0); Calcium, Blood 10.2 mg/dL (8.5-10.1); Creatinine, Blood 2.21 mg/dL (0.60-1.20); Globulin, Blood 2.5 g/dL (2.2-4.0); Potassium, Blood 3.9 mmol/L (3.5-5.5); Total Protein, Blood 7.8 g/dL (6.4-8.2)
--- NOTE | 2023-01-04 18:03 | NUR ---
BLADDER SCAN #1-VOIDED 300 POST VOID 356ML. #2-VOIDED 400 POST VOID 190 ML. NO DAVIS PLACED. CONTINUE POC.
--- NOTE | 2023-01-04 18:04 | NUR ---
EVENING NOTE PT ALERT AND ORIENTED. LIVER U/S DONE. SEE NOTE FOR POST VOID BLADDER SCAN. PT UP IN RECLINER FOR THE AFTERNOON. TOLERATED THERAPIES WELL. HE HAD A SPONTANIOUS LEFT NARE NOSE BLEED WITH O/T. RESOLVED WITH PRESSURE AND REST. OXYGEN HUMIDIFIED. GOOD APPETITE. DISCUSSED WITH DR SILVERMAN ABOUT JAUNDICED SKIN COLOR. URINE IS MORE ORANGE TODAY THAN YESTERDAY. LEGS ELEVATED AT REST. SINDY WRAPS ON BLE. SWELLING IMPROVING. HELD TOPROL AND SPIROLACTONE THIS AM D/T LOW BP. BP RECOVERED LATER IN THE DAY. NO DIZZINESS NOTED WITH ACTIVITY. CONTINUE POC.
--- NOTE | 2023-01-05 06:00 | NUR ---
END OF SHIFT NURSING REPORT - PM Patient is a 67-year-old male with a history of hypertension, congestive heart failure and COPD. Admitted 12/23/22with increasing dyspnea and lower extremity edema - refractory to escalating doses of oral diuretics outpatient AOX4 and needed 2LNC to maintain sats >90%. Lungs clear and diminished around the bases. Abdomen distended with audible bowel sounds. Kidney function decreased with BUN 105 / Cr 2.21. Lasix on hold as ordered, and remains on fluid restrictions of 1200ml. Post-void bladder scan at 0330 was 171ml, vid was 250ml.
[2023-01-05 08:57] LABS: BASOPHILS ABSOLUTE AUTO 0.01 K/mm3 (0.00-0.23); BASOPHILS PERCENT AUTO 0 % (0-2); EOSINOPHILS ABSOLUTE AUTO 0.07 K/mm3 (0.00-0.68); EOSINOPHILS PERCENT AUTO 1 % (0-6); Hematocrit 27.1 % (37.0-53.0); Hemoglobin 7.7 g/dL (13.5-17.5); IMMATURE GRAN ABSOLUTE AUTO 0.07 K/mm3 (0.00-0.10); IMMATURE GRAN PERCENT AUTO 1 % (0-1); LYMPHOCYTES ABSOLUTE AUTO 0.61 K/mm3 (0.84-5.20); LYMPHOCYTES PERCENT AUTO 5 % (21-46); MONOCYTES ABSOLUTE AUTO 0.58 K/mm3 (0.16-1.47); MONOCYTES PERCENT AUTO 5 % (4-13); Mean Corpuscular HGB 21.5 pg (26.0-34.0); Mean Corpuscular HGB Conc 28.4 g/dL (31.5-36.5); Mean Corpuscular Volume 76 fL (80-100); NEUTROPHILS ABSOLUTE AUTO 10.65 K/mm3 (1.96-9.15); NEUTROPHILS PERCENT AUTO 89 % (41-73); NRBC ABSOLUTE 0.02 K/mm3 (0.00-0.02); NRBC Auto 0.2 /100 WBC (0.0-0.2); Platelet Count 151 K/mm3 (150-400); RDW Coefficient Variation 24.3 % (11.7-14.2); RDW Standard Deviation 62.9 fL (35.1-46.3); Red Blood Cell Count 3.58 M/mm3 (4.30-5.90); White Blood Cell Count 11.99 K/mm3 (4.00-11.30)
[2023-01-05 09:13] LABS: Albumin/Globulin Ratio 2.2 (0.8-1.8); Bilirubin, Total 2.3 mg/dL (0.1-1.0); Bun/Creatinine Ratio 46.6 (12.0-20.0); Calcium, Blood 10.1 mg/dL (8.5-10.1); Creatinine, Blood 2.47 mg/dL (0.60-1.20); Globulin, Blood 2.3 g/dL (2.2-4.0); Total Protein, Blood 7.3 g/dL (6.4-8.2)
[2023-01-05 15:09] LABS: A/G RATIO 2.9 (0.7-1.7); ALBUMIN 5.4 g/dL (2.9-4.4); ALPHA-1-GLOBULIN 0.2 g/dL (0.0-0.4); ALPHA-2-GLOBULIN 0.6 g/dL (0.4-1.0); BETA GLOBULIN 0.7 g/dL (0.7-1.3); GAMMA GLOBULIN 0.5 g/dL (0.4-1.8); GLOBULIN, TOTAL 1.9 g/dL (2.2-3.9); IMMUNOGLOBULIN A, QN, SERUM 166 mg/dL (61-437); IMMUNOGLOBULIN G, QN, SERUM 424 mg/dL (603-1613); IMMUNOGLOBULIN M, QN, SERUM 18 mg/dL (20-172); M-SPIKE Not Observed g/dL (Not Observed); PROTEIN, TOTAL, SERUM 7.3 g/dL (6.0-8.5)
--- NOTE | 2023-01-05 17:25 | NUR ---
EVENING NOTE PT HAS HAD AN ACTIVE DAY. HE SHOWERED, DID HIS THERAPIES. HAS SAT UP IN THE CHAIR MOST OF THE DAY. ATE WELL. NO FURTHER NOSE BLEEDS OR HEMOPTESIS NOTED. SBP 90'S. TALKED WITH DR PEARSON. HELD TOPROL AND DIARETIC. DENEID PAIN OR DISCOMFORT. CT OF CHEST DONE. H/L. 2L N/C. CONTINUE POC.
--- NOTE | 2023-01-06 06:13 | NUR ---
END OF SHIFT NURSING REPORT - PM Patient is a 67-year-old male with a history of hypertension, congestive heart failure and COPD. Admitted 12/23/22 with increasing dyspnea and lower extremity edema - refractory to escalating doses of oral diuretics outpatient Eliquis on hold for coughing up blood. AOX4 and needed 2LNC to maintain sats >90%. Lungs clear and diminished around the bases. Abdomen distended with audible bowel sounds. Kidney function decreased with BUN 115 / Cr 2.47. Consult for hemodialysis cannulation scheduled sometime today. Lasix on hold as ordered, and remains on fluid restrictions of 1200ml.
[2023-01-06 08:28] LABS: BASOPHILS ABSOLUTE AUTO 0.01 K/mm3 (0.00-0.23); BASOPHILS PERCENT AUTO 0 % (0-2); EOSINOPHILS ABSOLUTE AUTO 0.08 K/mm3 (0.00-0.68); EOSINOPHILS PERCENT AUTO 1 % (0-6); Hematocrit 28.3 % (37.0-53.0); Hemoglobin 8.1 g/dL (13.5-17.5); IMMATURE GRAN ABSOLUTE AUTO 0.09 K/mm3 (0.00-0.10); IMMATURE GRAN PERCENT AUTO 1 % (0-1); LYMPHOCYTES ABSOLUTE AUTO 0.48 K/mm3 (0.84-5.20); LYMPHOCYTES PERCENT AUTO 4 % (21-46); MONOCYTES ABSOLUTE AUTO 0.52 K/mm3 (0.16-1.47); MONOCYTES PERCENT AUTO 4 % (4-13); Mean Corpuscular HGB 21.7 pg (26.0-34.0); Mean Corpuscular HGB Conc 28.6 g/dL (31.5-36.5); Mean Corpuscular Volume 76 fL (80-100); NEUTROPHILS ABSOLUTE AUTO 12.62 K/mm3 (1.96-9.15); NEUTROPHILS PERCENT AUTO 91 % (41-73); Platelet Count 143 K/mm3 (150-400); RDW Coefficient Variation 24.4 % (11.7-14.2); RDW Standard Deviation 63.2 fL (35.1-46.3); Red Blood Cell Count 3.74 M/mm3 (4.30-5.90)
[2023-01-06 08:37] LABS: Mean Platelet Volume 10.4 fL (9.1-12.4)
[2023-01-06 08:51] LABS: Albumin, Blood 5.1 g/dL (3.4-5.0); Bilirubin, Total 2.3 mg/dL (0.1-1.0); Bun/Creatinine Ratio 48.9 (12.0-20.0); Calcium, Blood 10.4 mg/dL (8.5-10.1); Creatinine, Blood 2.25 mg/dL (0.60-1.20); Globulin, Blood 2.5 g/dL (2.2-4.0); Phosphorus, Blood 3.9 mg/dL (2.5-4.9); Potassium, Blood 3.7 mmol/L (3.5-5.5); Total Protein, Blood 7.6 g/dL (6.4-8.2)
--- NOTE | 2023-01-06 19:13 | NUR ---
SHIFT SUMMARY: PT A&O X4, PLEASANT, COOPERATIVE, ABLE TO VOICE NEEDS AND COMMUNICATES WITH STAFF. PT LS COARSED, MOIST, COUGHING UP MAROON COLORED BLOOD, AND SHALLOW BREATHING. PT HAS DISTENTED ABDOMEN WITH TENDERNESS WITH PALPATION. PT SOB WITH AMBULATION AND DYSPNEA WITH EXTERTION. DR. WYLIE ASSESSED PT, [facility] [address] WYLIE NOTIFIED PT POST LABS RESULT WITH A POSSILBE PLACEMENT OF TEMPERARY PREMACATH FOR HEMO-DIAYLSIS. DR. MAIER CONATCTED ON PROJECTION OF PREMACATH PLACEMENT. DR. MAIER STATED CONTACTING DR. WYLIE ON TREATMENT. PT UP IN CHAIR FOR 2 OUT 3 MEALS. PT HAD MODERATE PAIN DURING THE SHIFT, PT RECEVIED PRN PAIN MEDICATION FOR PAIN MANAGEMENT. PT IN CHAIR WITH CALL LIGHT WITHIN REACH.
[2023-01-07 05:04] LABS: BASOPHILS ABSOLUTE AUTO 0.02 K/mm3 (0.00-0.23); BASOPHILS PERCENT AUTO 0 % (0-2); EOSINOPHILS ABSOLUTE AUTO 0.08 K/mm3 (0.00-0.68); EOSINOPHILS PERCENT AUTO 1 % (0-6); Hematocrit 29.3 % (37.0-53.0); Hemoglobin 8.2 g/dL (13.5-17.5); IMMATURE GRAN ABSOLUTE AUTO 0.08 K/mm3 (0.00-0.10); IMMATURE GRAN PERCENT AUTO 1 % (0-1); LYMPHOCYTES ABSOLUTE AUTO 0.47 K/mm3 (0.84-5.20); LYMPHOCYTES PERCENT AUTO 3 % (21-46); MONOCYTES ABSOLUTE AUTO 0.56 K/mm3 (0.16-1.47); MONOCYTES PERCENT AUTO 4 % (4-13); Mean Corpuscular HGB 21.6 pg (26.0-34.0); Mean Corpuscular Volume 77 fL (80-100); NEUTROPHILS PERCENT AUTO 92 % (41-73); Platelet Count 130 K/mm3 (150-400); RDW Coefficient Variation 24.9 % (11.7-14.2); RDW Standard Deviation 64.5 fL (35.1-46.3); Red Blood Cell Count 3.79 M/mm3 (4.30-5.90); White Blood Cell Count 14.41 K/mm3 (4.00-11.30)
[2023-01-07 05:22] LABS: Mean Platelet Volume 10.6 fL (9.1-12.4)
[2023-01-07 05:43] LABS: Albumin/Globulin Ratio 1.9 (0.8-1.8); Bilirubin, Total 1.8 mg/dL (0.1-1.0); Bun/Creatinine Ratio 56.3 (12.0-20.0); Calcium, Blood 10.3 mg/dL (8.5-10.1); Creatinine, Blood 1.99 mg/dL (0.60-1.20); Globulin, Blood 2.6 g/dL (2.2-4.0); Phosphorus, Blood 3.9 mg/dL (2.5-4.9); Potassium, Blood 4.2 mmol/L (3.5-5.5); Total Protein, Blood 7.6 g/dL (6.4-8.2)
--- NOTE | 2023-01-07 06:00 | NUR ---
END OF SHIFT NURSING REPORT - PM Patient is a 67-year-old male with a history of hypertension, congestive heart failure and COPD. Admitted 12/23/22 with increasing dyspnea and lower extremity edema - refractory to escalating doses of oral diuretics outpatient Eliquis on hold for coughing up blood. AOX4 and needed 2LNC to maintain sats >90%. Lungs clear and diminished around the bases. Abdomen distended with audible bowel sounds. Kidney function decreased with BUN 112 / Cr 1.99 and good urine output. Consult for hemodialysis cannulation with nephrology pending. WBC elevated this Am 14.41 Hepatic diet, and remains on fluid restrictions of 1200ml.
--- NOTE | 2023-01-07 17:42 | NUR ---
SHIFT SUMMARY: NO ACUTE EVENTS. NO EVENTS ON TELEMETRY, SR 70'S. A&O X 3, FLAT AFFECT. C/O PAIN IN CHEST AND UPPER ABD FROM COUGHING; MEDICATED PER EMAR WITH ADEQUATE RELIEF. HAS AUTOMOBILE TESTER COUGH, SHALLOW AND HACKING. COMPLIANT WITH FLUID RESTRICTION. HAS MULTIPLE WOUNDS ON HIS L THIGH AND LLE. STAYED UP IN CHAIR FOR SEVERAL HOURS TODAY, DEPENDENT EDEMA CAUSED FLUID TO LEAK FROM L LATERAL CALF; DRY DRESSING PLACED AND LEGS ELEVATED WHEN HE GOT BTB. MODERATE PO INTAKE. SLEEPY THIS AFTERNOON.
[2023-01-08 05:20] LABS: Albumin, Blood 4.8 g/dL (3.4-5.0); Albumin/Globulin Ratio 1.6 (0.8-1.8); Bilirubin, Total 2.3 mg/dL (0.1-1.0); Bun/Creatinine Ratio 53.3 (12.0-20.0); Calcium, Blood 9.6 mg/dL (8.5-10.1); Creatinine, Blood 2.29 mg/dL (0.60-1.20); Percent Saturation 18.8 % (20.0-50.0); Phosphorus, Blood 4.6 mg/dL (2.5-4.9); Potassium, Blood 5.8 mmol/L (3.5-5.5); Total Protein, Blood 7.8 g/dL (6.4-8.2)
[2023-01-08 05:49] LABS: BASOPHILS ABSOLUTE AUTO 0.03 K/mm3 (0.00-0.23); BASOPHILS PERCENT AUTO 0 % (0-2); EOSINOPHILS ABSOLUTE AUTO 0.17 K/mm3 (0.00-0.68); EOSINOPHILS PERCENT AUTO 1 % (0-6); Hematocrit 27.8 % (37.0-53.0); Hemoglobin 7.8 g/dL (13.5-17.5); IMMATURE GRAN PERCENT AUTO 1 % (0-1); LYMPHOCYTES ABSOLUTE AUTO 0.59 K/mm3 (0.84-5.20); LYMPHOCYTES PERCENT AUTO 4 % (21-46); MONOCYTES ABSOLUTE AUTO 1.75 K/mm3 (0.16-1.47); MONOCYTES PERCENT AUTO 11 % (4-13); Mean Corpuscular HGB Conc 28.1 g/dL (31.5-36.5); Mean Corpuscular Volume 78 fL (80-100); NEUTROPHILS ABSOLUTE AUTO 12.83 K/mm3 (1.96-9.15); NEUTROPHILS PERCENT AUTO 83 % (41-73); Platelet Count 123 K/mm3 (150-400); RDW Coefficient Variation 25.6 % (11.7-14.2); RDW Standard Deviation 66.4 fL (35.1-46.3); Red Blood Cell Count 3.55 M/mm3 (4.30-5.90); White Blood Cell Count 15.47 K/mm3 (4.00-11.30)
--- NOTE | 2023-01-08 06:00 | NUR ---
END OF SHIFT NURSING REPORT - PM Patient is a 67-year-old male with a history of hypertension, congestive heart failure and COPD. Admitted 12/23/22 with increasing dyspnea and lower extremity edema - refractory to escalating doses of oral diuretics outpatient Eliquis on hold for coughing up blood. AOX4 and needed 2LNC to maintain sats >90%. Lungs clear and diminished around the bases. Abdomen distended with audible bowel sounds. Kidney function decreased with BUN 112 / Cr 1.99 and good urine output. Bilateral lower extremities with +4 edema, wrapped with Sergio-wrap and SCD initiated. WBC elevated this Am 15.47 Hepatic diet, and remains on fluid restrictions of 1200ml.
--- NOTE | 2023-01-08 16:07 | NUR ---
GAVE PT TEST DOSE OF IRON DEXTRAN IV AT 1452. NO ADVERSE REACTION NOTED. NOTIFIED PHARMACY TO SEND REMAINING MEDICATION. WILL CONTINUE TO MONITOR.
--- NOTE | 2023-01-08 17:04 | NUR ---
SHIFT SUMMARY: PT SOMNOLENT MOST OF THE SHIFT, AROUSES TO SPEECH. NO EVENTS ON TELEMETRY, SR 60-70'S. ON O2 @ 2 L/MIN NC; BREATHING SHALLOW, PROD COUGH, SMALL AMT SPUTUM NOT OBSERVED. COMPLIANT WITH 1200 ML FLUID RESTRICTION. USING URINAL. APPETITE OK. IRON DEXTRAN INFUSING.
--- NOTE | 2023-01-09 04:42 | NUR ---
END OF SHIFT NURSING REPORT - PM Patient is a 67-year-old male with a history of hypertension, congestive heart failure and COPD. Admitted 12/23/22 with increasing dyspnea and lower extremity edema - refractory to escalating doses of oral diuretics outpatient. More alert this evening, than during day hours, and able to communicate needs and wants. Eliquis on hold for coughing up blood. AOX4 and needed 2LNC to maintain sats >90%. Lungs clear and diminished around the bases. Abdomen distended with audible bowel sounds. Kidney function decreased with BUN 112 / Cr 1.99 and good urine output. Bilateral lower extremities with +4 edema, wrapped with Sergio-wrap and SCD initiated. WBC elevated this Am 15.47. Nephrology has been following and recommend temp dialysis cath placed tomorrow if BUN/Cr continue to worsen. Hepatic diet, and remains on fluid restrictions of 1200ml.
[2023-01-09 04:59] LABS: BASOPHILS ABSOLUTE AUTO 0.02 K/mm3 (0.00-0.23); BASOPHILS PERCENT AUTO 0 % (0-2); EOSINOPHILS ABSOLUTE AUTO 0.13 K/mm3 (0.00-0.68); EOSINOPHILS PERCENT AUTO 1 % (0-6); Hematocrit 27.8 % (37.0-53.0); Hemoglobin 7.9 g/dL (13.5-17.5); IMMATURE GRAN ABSOLUTE AUTO 0.09 K/mm3 (0.00-0.10); IMMATURE GRAN PERCENT AUTO 1 % (0-1); LYMPHOCYTES ABSOLUTE AUTO 0.46 K/mm3 (0.84-5.20); LYMPHOCYTES PERCENT AUTO 4 % (21-46); MONOCYTES ABSOLUTE AUTO 0.77 K/mm3 (0.16-1.47); MONOCYTES PERCENT AUTO 7 % (4-13); Mean Corpuscular HGB Conc 28.4 g/dL (31.5-36.5); Mean Corpuscular Volume 77 fL (80-100); NEUTROPHILS PERCENT AUTO 87 % (41-73); Platelet Count 119 K/mm3 (150-400); RDW Coefficient Variation 25.7 % (11.7-14.2); RDW Standard Deviation 66.7 fL (35.1-46.3); Red Blood Cell Count 3.59 M/mm3 (4.30-5.90); White Blood Cell Count 11.67 K/mm3 (4.00-11.30)
[2023-01-09 05:28] LABS: Mean Platelet Volume 10.3 fL (9.1-12.4)
[2023-01-09 06:18] LABS: Alanine Aminotransfer (ALT/SGP 31 U/L (12-78); Albumin, Blood 4.2 g/dL (3.4-5.0); Albumin/Globulin Ratio 1.4 (0.8-1.8); Alk Phos 268 U/L (50-136); Anion Gap 10 mmol/L (6-16); Aspartate Aminotrans (AST/SGOT 29 U/L (12-37); Bilirubin, Total 2.2 mg/dL (0.1-1.0); Blood Urea Nitrogen 134 mg/dL (8-24); Bun/Creatinine Ratio 47.2 (12.0-20.0); CO2, Blood 29 mmol/L (21-32); Calcium, Blood 9.7 mg/dL (8.5-10.1); Chloride, Blood 95 mmol/L (98-108); Creatinine, Blood 2.84 mg/dL (0.60-1.20); Globulin, Blood 2.9 g/dL (2.2-4.0); Glomerular Filtration Rate 24 (60-); Glucose, Blood 83 mg/dL (70-99); Phosphorus, Blood 4.8 mg/dL (2.5-4.9); Potassium, Blood 4.2 mmol/L (3.5-5.5); Sodium, Blood 134 mmol/L (136-145); Total Protein, Blood 7.1 g/dL (6.4-8.2)
[2023-01-09 11:09] LABS: M-SPIKE, % Not Observed % (Not Observed); PROTEIN,TOTAL,URINE 64.6 mg/dL (Not Estab.)
[2023-01-09 11:53] LABS: Hematocrit 27.4 % (37.0-53.0); Hemoglobin 7.8 g/dL (13.5-17.5)
--- NOTE | 2023-01-09 16:29 | NUR ---
THIS TONGUE PRESSER HAS REVIEWED ALL NOTES AND ASSESSMENTS AND AGREES WITH THEM BY KASIE FRANK.
--- NOTE | 2023-01-09 17:12 | NUR ---
BRODERICK HAS BEEN LETHARGIC TODAY AFTER RECIVEING OXYCODONE THIS MORNING. HE IS AROUSABLE AND AOX4. BLOODY LOOSE STOOL THIS AM AND DIFFICULTY SWALLOWING 1 PILL AT A TIME. CHEST AND ABDOMINAL PAIN MANAGED PER EMAR. SWITCHED TO MANUAL BP CUFF DUE TO ABNORMAL HIGH READINGS. LASIX HELD THIS AM DUE TO LOW BP CONTINUING AFTER METOPROLOL GIVEN. RBC TRANSUFUSION IN PROGRESS. CALL LIGHT WITHIN REACH, WILL CONTINUE TO MONITOR
[2023-01-09 20:36] LABS: Hematocrit 30.9 % (37.0-53.0); Hemoglobin 8.9 g/dL (13.5-17.5)
[2023-01-10 02:37] LABS: BASOPHILS ABSOLUTE AUTO 0.03 K/mm3 (0.00-0.23); BASOPHILS PERCENT AUTO 0 % (0-2); EOSINOPHILS ABSOLUTE AUTO 0.14 K/mm3 (0.00-0.68); EOSINOPHILS PERCENT AUTO 1 % (0-6); Hematocrit 29.8 % (37.0-53.0); Hemoglobin 8.6 g/dL (13.5-17.5); IMMATURE GRAN ABSOLUTE AUTO 0.07 K/mm3 (0.00-0.10); IMMATURE GRAN PERCENT AUTO 1 % (0-1); LYMPHOCYTES ABSOLUTE AUTO 0.44 K/mm3 (0.84-5.20); LYMPHOCYTES PERCENT AUTO 4 % (21-46); MONOCYTES ABSOLUTE AUTO 0.75 K/mm3 (0.16-1.47); MONOCYTES PERCENT AUTO 7 % (4-13); Mean Corpuscular HGB 22.3 pg (26.0-34.0); Mean Corpuscular HGB Conc 28.9 g/dL (31.5-36.5); Mean Corpuscular Volume 77 fL (80-100); NEUTROPHILS ABSOLUTE AUTO 8.71 K/mm3 (1.96-9.15); NEUTROPHILS PERCENT AUTO 86 % (41-73); NRBC ABSOLUTE 0.02 K/mm3 (0.00-0.02); NRBC Auto 0.2 /100 WBC (0.0-0.2); Platelet Count 110 K/mm3 (150-400); RDW Coefficient Variation 25.2 % (11.7-14.2); RDW Standard Deviation 65.2 fL (35.1-46.3); Red Blood Cell Count 3.85 M/mm3 (4.30-5.90); White Blood Cell Count 10.14 K/mm3 (4.00-11.30)
[2023-01-10 03:01] LABS: Albumin, Blood 4.1 g/dL (3.4-5.0); Albumin/Globulin Ratio 1.5 (0.8-1.8); Bilirubin, Total 2.4 mg/dL (0.1-1.0); Bun/Creatinine Ratio 44.4 (12.0-20.0); Calcium, Blood 9.6 mg/dL (8.5-10.1); Creatinine, Blood 3.15 mg/dL (0.60-1.20); Globulin, Blood 2.7 g/dL (2.2-4.0); Percent Saturation 99.8 % (20.0-50.0); Phosphorus, Blood 5.7 mg/dL (2.5-4.9); Total Protein, Blood 6.8 g/dL (6.4-8.2)
[2023-01-10 03:37] LABS: Mean Platelet Volume 10.7 fL (9.1-12.4)
--- NOTE | 2023-01-10 06:00 | NUR ---
END OF SHIFT NURSING REPORT - PM AOX4, had a pleasant night. Assisted out of bed for daily weight, x2 moderate assist. Bilateral LE pitting edema +4. Left leg weeing with large amounts of serous drainage. Wrapped both legs with kerlix wrap, compression luis alberto-wraps and initiated SCD to assist in reducing the swelling. He is weaker and incontinent today than usual. Lung sounds coarse and receive multiple breathing tx. Plan for cannulation today for possible hemodialysis. ST evaluation recommends [place] thick fluids, and medications crushed.
[2023-01-10 13:09] LABS: ANTIMYELOPEROXIDASE (MPO) ABS <0.2 units (0.0-0.9); ANTIPROTEINASE 3 (PR-3) ABS <0.2 units (0.0-0.9); ATYPICAL PANCA <1:20 titer (Neg:<1:20); CYTOPLASMIC (C-ANCA) <1:20 titer (Neg:<1:20); PERINUCLEAR (P-ANCA) <1:20 titer (Neg:<1:20)
--- NOTE | 2023-01-10 17:10 | NUR ---
PATIENT MORE ALERT THIS AM, PERMACATH PLACED TO LEFT UPPER CHEST, AFTER DIALYSYS, PATIENT OBSERVED TWITCHING MORE, MORE LETHARGIC, UNABLE TO STATE LOCATION OR TIME. BP 1626 90/556, HR 76, O2 SAT 96% WITH 1 LPM NC. RECHECK OF BP 1645 84/52, CALL PLACED TO DR RHODES, ORDERS FOR 250ML BOLUS 1 TIME OF NS AND CALL DR SHARMA. CALL TO DR SHARMA FOR UPDATE, NO CHANGES, CALL BACK IF BP STILL LOW AFTER BOLUS. PT OBSERVED W/BLEEDING AT NEW PERMACATH SITE, SATURATED DRESSING, SANDBAGS AND DIRECT PRESSURE PLACED UNTIL DIALYSIS NURSE SHMUEL PLACED NEW [place] DRESSING. PRESSURE CONTINUED TO BE APPLIED FOR 10 MINUTES BY JARRETT AND THEN SANDBAGS. CALL ALSO PLACED TO DR TOWNSEND AGAIN REGARDING FOLLOW UP BP 80/40 AT 1700, ORDERS TO ADMIN ADDITIONAL 250ML NS AND MIDODRINE IF BELOW 100 SYSTOLIC. MIDODRINE GIVEN. DRESSING SATURATED AGAIN TO LEFT UPPER CHEST, DIRECT PRESSURE APPLIED BEGINING AT 1715. CONTINUING TO MONITOR AND TREAT PER PLAN OF CARE
--- NOTE | 2023-01-10 17:27 | NUR ---
SPOKE TO PT'S SISTER RUBIN TODAY. SHE REPORTS PT HAS 2 OTHER SISTERS AND 3 DAUGHTERS, BUT THE "RESPONSIBLE DAUGHTER" IS IN [place] AT THIS TIME. SHE AND HER ARE BOTH IN THE , AND SHE IS CURRENTLY DEPLOYED. PT'S SISTER CHITRA IS A NURSE, AND IS ALSO INVOLVED IN HIS CARE. HIS 3 DAUGHTERS ARE NOT HEAVILY INVOLVED IN HIS CARE. PLAN TO DISCUSS FURTHER WITH BOTH RUBIN AND CHITRA TOMORROW.
--- NOTE | 2023-01-10 18:50 | NUR ---
THIS BILLET HEADER REVIEWED AND AGREES WITH ALL NOTES AN ASSESSMENTS BY KASIE ZAC.
--- NOTE | 2023-01-11 06:00 | NUR ---
END OF SHIFT NURSING REPORT - PM Patient is a 67-year-old male with a history of hypertension, congestive heart failure and COPD. Admitted 12/23/22 with increasing dyspnea and lower extremity edema - refractory to escalating doses of oral diuretics outpatient. More alert this evening, than during day hours, and able to communicate needs and wants. Eliquis on ON HOLD. Lethargic in the evening and became more alert as the night went on. Was able to stand for 3 minutes and side step with moderate assistance. Right HD permacath to R-subclavian soaked in bright red blood. Cleaned and dressed with centraline dressing. Puncture site above permacath with x1 suture bleeding profusely, pressure applied x1hr and redressed with kerlex and occlusive dressing. Pressure tape applied over site. AM labs drawn
[2023-01-11 06:04] LABS: BASOPHILS ABSOLUTE AUTO 0.03 K/mm3 (0.00-0.23); BASOPHILS PERCENT AUTO 0 % (0-2); EOSINOPHILS ABSOLUTE AUTO 0.11 K/mm3 (0.00-0.68); EOSINOPHILS PERCENT AUTO 1 % (0-6); Hematocrit 27.5 % (37.0-53.0); Hemoglobin 8.3 g/dL (13.5-17.5); IMMATURE GRAN PERCENT AUTO 1 % (0-1); LYMPHOCYTES ABSOLUTE AUTO 0.43 K/mm3 (0.84-5.20); LYMPHOCYTES PERCENT AUTO 4 % (21-46); MONOCYTES ABSOLUTE AUTO 0.76 K/mm3 (0.16-1.47); MONOCYTES PERCENT AUTO 7 % (4-13); Mean Corpuscular HGB 22.9 pg (26.0-34.0); Mean Corpuscular HGB Conc 30.2 g/dL (31.5-36.5); Mean Corpuscular Volume 76 fL (80-100); NEUTROPHILS ABSOLUTE AUTO 9.57 K/mm3 (1.96-9.15); NEUTROPHILS PERCENT AUTO 87 % (41-73); NRBC ABSOLUTE 0.03 K/mm3 (0.00-0.02); NRBC Auto 0.3 /100 WBC (0.0-0.2); Platelet Count 112 K/mm3 (150-400); RDW Coefficient Variation 25.5 % (11.7-14.2); RDW Standard Deviation 64.2 fL (35.1-46.3); Red Blood Cell Count 3.62 M/mm3 (4.30-5.90)
[2023-01-11 06:17] LABS: Mean Platelet Volume 9.8 fL (9.1-12.4)
[2023-01-11 06:29] LABS: Albumin/Globulin Ratio 1.6 (0.8-1.8); Bilirubin, Total 2.5 mg/dL (0.1-1.0); Bun/Creatinine Ratio 28.1 (12.0-20.0); Creatinine, Blood 3.03 mg/dL (0.60-1.20); Globulin, Blood 2.5 g/dL (2.2-4.0); Total Protein, Blood 6.5 g/dL (6.4-8.2)
[2023-01-11 14:11] LABS: HBSAG SCREEN Negative (Negative); HCV AB Non Reactive (Non Reactive); HEP A AB, IGM Negative (Negative); HEP B CORE AB, IGM Negative (Negative)
--- NOTE | 2023-01-11 18:40 | NUR ---
UPDATE: PT'S CONDITION REMAINS CHRONIC. CURRENTLY RECEIVING DIALYISIS. PT DID NOT APPEAR TO RECOGNIZE HIS SISTER ERYN. PLACED A CALL TO PT'S DAUGHTER JOSEF, AND SHE WILL TALK TO HER OTHER SISTERS EL, REGARDING PLAN OF CARE.
--- NOTE | 2023-01-11 20:21 | NUR ---
SHIFT SUMMARY- PT IS ALERT AND ORIENTED X4. SOFT SPOKEN, 2L NC. PT HAD BEEN R/A MOST OF THE DAY. SEE RT NOTES. FOLLOWING BARIUM STUDY PT DIET WAS ADVANCED. SEE ST NOTES. PT HAD SMALL AMOUNT OF VOMITING DURING DINNER. PT STATED THAT THE FRUIT SAUCE UPSET HIS STOMACH. TREATED N/V PER EMAR AND PLACED PT BACK TO NPO. PT HAD EPISODE OF SOB AND WHEEZING AFTER VOMITING. RT NOTIFED. PLACE PT ON 2L NC. MONITORED O2 SAT. PT SATURATION >92%. PT SEEMS TO BE SOB AND IN DISCOMFORT WITHOUT ANY EXCERTION. LOOSE BM TODAY, NO BLOOD NOTED. PT STATES THAT HE FEELS BETTER OVERALL. PALLIATIVE CARE CONSULTED. SEE NOTES. PT GAVE ME PERMISSION TO GIVE UPDATES OF PT CONDITION AND CARE PLAN TO SON IN LAW, CHITO. CHITO ASKING ABOUT PROGNOSIS, WHEN AND HOW DNR STATUS WAS DECIDED ON, AND EXPRESSED CONCERN ABOUT PT ONGOING CARE NEEDS AND DECISIONS. I TOLD HIM THAT I WAS NOT ABLE TO DISCUSS CERTAIN MATTERS AND THAT I WAS ONLY GIVEN PERMISION TO GIVE UPDATES ON PT CONDITION AND CURRENT CARE PLAN. I ALSO CONSULTED PT WHO STATED THAT THE CALLER SHOULD TALK WITH PT SISTER ABOUT HIS CONCERNS. PT STATED THAT HE WILL BE REACHING OUT TO ALUMINUM CONTAINER TESTER AND PHYSICIANS. BED IS IN THE LOWEST POSITION WITH CALL LIGHT IN REACH.
--- NOTE | 2023-01-12 05:08 | NUR ---
SHIFT SUMMARY 67 YR M ADMITTED ON 12/23/22 FOR EXACERBATION OF HEART FAILURE. DNR. NO ACUTE CHANGES THIS SHIFT. PT WAS ABLE TO TOLERATE TAKING HIS EVENING MEDS CRUSHED IN [place]ANILLA PUDDING. HE HAS SLEPT FOR MOST OF THIS SHIFT BUT HAS OBVIOUS LABORED BREATHING. HE IS STILL ON 2 L O2 BY NC. HE IS BEING TURNED Q2 AND TOLERATES IT WELL, INCLUDING PARTICIPATING IN TURNING FROM SIDE TO SIDE. VERY LITTLE URINE OUTPUT AND A SMEAR OF STOOL BUT NO FULL BM THIS SHIFT. HE IS A VERY PLEASANT MAN AND COOPERATES WILL ALL REQUESTS FROM STAFF. AT APPROX 0445 HE REQUESTED NAUSEA AND WAS MEDICATED PER EMAR. HE STATED THAT IT HELPED AND HE WAS FEELING BETTER.
[2023-01-12 06:04] LABS: Albumin, Blood 4.1 g/dL (3.4-5.0); Anion Gap 8 mmol/L (6-16); Blood Urea Nitrogen 59 mg/dL (8-24); Bun/Creatinine Ratio 20.1 (12.0-20.0); CO2, Blood 29 mmol/L (21-32); Calcium, Blood 8.7 mg/dL (8.5-10.1); Chloride, Blood 101 mmol/L (98-108); Creatinine, Blood 2.94 mg/dL (0.60-1.20); Glomerular Filtration Rate 23 (60-); Glucose, Blood 92 mg/dL (70-99); Phosphorus, Blood 3.5 mg/dL (2.5-4.9); Potassium, Blood 3.7 mmol/L (3.5-5.5); Sodium, Blood 138 mmol/L (136-145)
--- NOTE | 2023-01-12 15:12 | NUR ---
MET WITH PT AND HIS SISTER MIGUEL THIS AM. PT WAS CLEARER THAN HE HAD BEEN AT PREVIOUS VISITS. THIS TIME, HE RECOGNIZED HIS SISTER MIGUEL. WE HAD A IDALMIS DISCUSSION ABOUT HIS HEALTH, RD. RHODES HAD ALREADY SPOKEN TO THE PT AND HIS SISTER. AFTER SOME TIME, PT HAS NOW ELECTED TO "GO HOME TO [place]", AND "BE WITH MY CAT". HE STATES HE DOESN'T WANT TO HURT ANYMORE, AND DOESN'T WANT TO "KEEP DOING ALL THESE TESTS AND THINGS. HE WAS UNABLE TO COMPLETE DIALYSIS DUE TO LOW BLOOD PRESSURE. PLAN TO CALL FAMILY, DR RHODES AND ELECTRONIC TYPESETTING MACHINE OPERATOR, TO BEGIN LOOKING AT DISCHARGE.
--- NOTE | 2023-01-12 16:59 | NUR ---
SHIFT SUMMARY PATIENT IS ALERT AND ORIENTED WITH SOME CONFUSION. PATIENT HAS HAD SOFT BP THIS SHIFT. PATIENT HAS HAD DIALYSIS TODAY WITH NO FLUIDS TAKEN OFF DURING 4HR RUN. PATIENT HAS NOT COMPLAINED OF PAIN, NAUSEA, SOB OR VOMITTING. SPEECH THERAPY HAS SEEN PATIENT AND DIET DID NOT CHANGE. PATIENT HAS NOT EATTEN OR DRANK MUCH THIS SHIFT. PALLATIVE CARE HAS SEEN PATIENT, REFER TO MANAS'S NOTE. PATIENT HAS BEEN TURNED Q2. BED IN LOCKED AND LOWEST POSITION. CALL LIGHT IN PLACE. WILL MONITOR UNTIL SHIFT CHANGE.
--- NOTE | 2023-01-12 18:08 | NUR ---
PT TO GO HOME WITH HOSPICE TOMORROW, AWAITING RETURN CALL FROM [facility], BUT REACHED AFTER HOURSE LINE, AND THEY STATE WILL CALL BACK IN THE MORNING. SPOKE WITH JOHN AT [place], PT'S HOME. THEY ARE AWARE PT IS RETURNING TOMORROW WITH HOSPICE, IF [facility] AVAIALABLE FOR HOSPICE ADMISSION TOMORROW. WILL PLACE THE ORDER.
--- NOTE | 2023-01-13 05:01 | NUR ---
INSURANCE TERRITORY MANAGER SUMMARY PT DROWSY/LETHARGIC IN EVENTING; SLEPT WELL T/O THIS NIGHT. PT WAKES W/CONFUSION AND STATES, "I FORGOT WHERE I WAS" THEN NOT ABLE TO STATE WHERE HE IS AT. PT NOTED HAVING AUDITORY HALLUCINATIONS THINKING HE HEARS HIS SISTER. PT TOOK MEDS CRUSHED IN APPLESAUCE. BLOOD SUGARS BORDERLINE LOW; PT TOLERATED A FEW SIPS OF ENSURE AND SOME APPLEJUICE. PT STATES HE "CAN'T BREATHE" WHEN DRINKING; NOTED SOB C PO INTAKE. PT DESATING INTO 80'S; 1.5L NC O2 T/MAINTAIN SAT >90%. PT HAVING SOFT BLOOD PRESSURE T/O SHIFT--WILL CONT TO MONITOR. CONT C Q2 TURNS T/O THE SHIFT. PT UNABLE TO USE CALL LIGHT OR MAKE NEEDS KNOWN APPROPRIATELY. FREQUENT ROUNDING. PT REMAINS ON TELE--NORMAL SINUS C PVC. PT DENIES PAIN. CALL LIGHT ACCESSIBLE. BED ALARM ON.
[2023-01-13 07:11] LABS: Albumin, Blood 4.4 g/dL (3.4-5.0); Anion Gap 9 mmol/L (6-16); Blood Urea Nitrogen 34 mg/dL (8-24); Bun/Creatinine Ratio 11.7 (12.0-20.0); CO2, Blood 28 mmol/L (21-32); Calcium, Blood 8.7 mg/dL (8.5-10.1); Chloride, Blood 100 mmol/L (98-108); Creatinine, Blood 2.91 mg/dL (0.60-1.20); Glomerular Filtration Rate 23 (60-); Glucose, Blood 83 mg/dL (70-99); Phosphorus, Blood 2.4 mg/dL (2.5-4.9); Potassium, Blood 3.8 mmol/L (3.5-5.5); Sodium, Blood 137 mmol/L (136-145)
--- NOTE | 2023-01-13 11:06 | NUR ---
PHYSICIAN ORDERS FROM DR. WATERS 2MG ATIVAN IV Q4 PRN FOR ANXIETY/AIR HUNGER DC METOPROLOL D/T HYPOTENSION PLACE DAVIS FOR WOUNDS/REDNESS ON SACRUM AND PENIS, POTENTIALLY GOING ON COMFORT CARE ORDER LIBRARY SERIALS ASSISTANT, PATIENT POSSIBLY IMMINENT DC TELE
--- NOTE | 2023-01-13 11:08 | NUR ---
PROTOCOL ORDER AFTER PLACING DAVIS, ORDERED URINALYSIS PER PROTOCOL
[2023-01-13 11:15] LABS: Source, Urine Foley catheter
[2023-01-13 11:22] LABS: Appearance, Urine Clear (Clear); Bilirubin, Urine Neg (Neg); Blood, Urine Neg (Neg); Color, Urine Yellow (P-Yellow); Glucose Qualitative, Urine Neg (Neg); Ketones, Urine 1+ (Neg); Leukocyte Esterase, Urine 1+ (Neg); Nitrite, Urine Neg (Neg); Protein, Urine 3+ (Neg); Urobilinogen, Urine NORM (Normal)
[2023-01-13 11:40] LABS: Bacteria Few /hpf; Red Blood Cells, Urine Not Seen /hpf (0-2); Squamous Epithelial Cells Few /hpf (Few); White Blood Cells, Urine 0-2 /hpf (0-5)
[2023-01-13 11:41] LABS: Hyaline Casts 0-2 /lpf (0-2); Mucus Mod (0-Heavy)
--- NOTE | 2023-01-13 13:47 | NUR ---
Spiritual Care Consult by Dr. Arcos Spiritual Care attempted on two occassions. Pt. is on Comfort Care, and family are not present. Prayed for Pt. and will remain available. Please notify this document imaging specialist when family returns.
--- NOTE | 2023-01-13 14:39 | NUR ---
Pt placed on comfort care today. He has been sleeping intermittently, and becoming less responsive. Coarse, wet lungs noted. Pt is having increased episodes of confusion, air hunger. Pt's sisters and daughters have discussed and decided together to change pt's status to comfort care, as pt himself stated yesterday he did not want to continue with dialysis or other treatments. He stated he just wants to go home and see his cat. Family in agreement. Received order from Dr. Arcos for comfort care. Palliative care will continue to follow pt.
--- NOTE | 2023-01-13 17:38 | NUR ---
Shift Summary A/O to self. Morning L/S had rattles and rhonchi heard even without stethescope. Transitioned to comfort care at this time. Kaur inserted for end of life. Medicating per EMAR for pain, air hunger, and excessive secretions. Sister at bedside most of the day.
--- NOTE | 2023-01-13 18:10 | NUR ---
COMFORT CARE ORDER "Comfort Care" order placed per Dr. Arcos and per Palliative Care RN note.
--- NOTE | 2023-01-14 04:58 | NUR ---
PEARL HAND SUMMARY PT ON COMFORT CARE. CONT W/Q4 COMFORT ASSESSMENTS AND WORKED W/SOCIOLOGY RESEARCH ASSISTANT TO COMPLETE Q2 TURNS. PT AROUSABLE TO VERBAL STIMULI/LETHARGIC AT BEGINNING OF SHIFT AND RETURNS TO SLEEP QUICKLY. THE NIGHT PROGRESSED PT ARROUSABLE TO PAINFUL STIMULI ONLY. AUDIBLE RATTLE CAN BE HEARD AND LUNG SOUNDS ARE VERY COARSE T/O. PT BREATHING APPEARS LABORED WITH SOME APNEIC PAUSES. PT DENIED PAIN WHEN RESPONSIVE TO VERBAL. AT 0400 COMFORT ASSESSMENT. FOUND PT W/MORE LABORED BREATHING AND INCREASED SECRETIONS. GAVE ATTROPINE AND ROXANOL. CALLED RT FOR DEEP SUCTIONING. THIS WAS DONE WITH SOME RELIEF. SPUTUM IS BLOOD TINGED AND FOUND GUMS MOUTH TO BE BLEEDING DURNG SUCTIONING. WILL CONT TO MONITOR AND MED PER EMAR.
--- NOTE | 2023-01-14 10:22 | NUR ---
PT PT . TOD 1002. 2 RN CHECK DONE WITH DYLLAN FRANK. PALLIATIVE CARE RN NOTIFIED AND HERE. PLACED CALL TO MD TO NOTIFIY. MD AWARE. PLAIIATIVE CARE WILL NOTIFY FAMILY. ICE PACKS PLACED ON EYES. PT IS A POTENTIAL TISSUE DONOR.
--- NOTE | 2023-01-14 11:49 | NUR ---
[facility] OF THE [facility] REP HERE. DENNIS LANZA. REP MADE AWARE PT IS A POTENTIAL TISSUE DONOR AND THAT ICE PKS ARE ON PT'S EYES.
== END 2023-01-14 10:02 | DRG 673 ==
LOC: ER 07:38 → MEDS 10:08
PROVIDERS: Emergency Medicine; Family Medicine; Internal Medicine; Internal Medicine Nephrology; ADMIT Hospitalist
PROC: 30233N1 Transfusion of Nonautologous Red Blood Cells into Peripheral Vein, Percutaneous Approach (ICD-10-PCS; 2023-01-09)
PROC: 0JH63XZ Insertion of Tunneled Vascular Access Device into Chest Subcutaneous Tissue and Fascia, Percutaneous Approach (ICD-10-PCS; principal; 2023-01-10)
PROC: 02HV33Z Insertion of Infusion Device into Superior Vena Cava, Percutaneous Approach (ICD-10-PCS; 2023-01-10)
PROC: B518ZZA Fluoroscopy of Superior Vena Cava, Guidance (ICD-10-PCS; 2023-01-10)
PROC: B548ZZA Ultrasonography of Superior Vena Cava, Guidance (ICD-10-PCS; 2023-01-10)
PROC: 5A1D70Z Performance of Urinary Filtration, Intermittent, Less than 6 Hours Per Day (ICD-10-PCS; 2023-01-11)
PROC: 0T9B70Z Drainage of Bladder with Drainage Device, Via Natural or Artificial Opening (ICD-10-PCS; 2023-01-13)
DX: N17.9 Acute kidney failure, unspecified (principal); G93.41 Metabolic encephalopathy; I50.33 Acute on chronic diastolic (congestive) heart failure; J96.01 Acute respiratory failure with hypoxia; I13.2 Hypertensive heart and chronic kidney disease with heart failure and with stage 5 chronic kidney disease, or end stage renal disease; J44.1 Chronic obstructive pulmonary disease with (acute) exacerbation; I48.20 Chronic atrial fibrillation, unspecified; L02.416 Cutaneous abscess of left lower limb; L03.116 Cellulitis of left lower limb; K92.0 Hematemesis; R04.2 Hemoptysis; K62.5 Hemorrhage of anus and rectum; J94.8 Other specified pleural conditions; N18.6 End stage renal disease; Z51.5 Encounter for palliative care; Z66 Do not resuscitate; K59.00 Constipation, unspecified; K21.9 Gastro-esophageal reflux disease without esophagitis; B71.9 Cestode infection, unspecified; I25.10 Atherosclerotic heart disease of native coronary artery without angina pectoris; D69.6 Thrombocytopenia, unspecified; E78.5 Hyperlipidemia, unspecified; G25.81 Restless legs syndrome; K76.0 Fatty (change of) liver, not elsewhere classified; F41.1 Generalized anxiety disorder; I05.9 Rheumatic mitral valve disease, unspecified; N40.0 Benign prostatic hyperplasia without lower urinary tract symptoms; R13.10 Dysphagia, unspecified; F32.9 Major depressive disorder, single episode, unspecified; E88.09 Other disorders of plasma-protein metabolism, not elsewhere classified; D63.1 Anemia in chronic kidney disease; F12.10 Cannabis abuse, uncomplicated; Z20.822 Contact with and (suspected) exposure to COVID-19; B95.2 Enterococcus as the cause of diseases classified elsewhere; B96.89 Other specified bacterial agents as the cause of diseases classified elsewhere; T50.1X5A Adverse effect of loop [high-ceiling] diuretics, initial encounter; T50.0X5A Adverse effect of mineralocorticoids and their antagonists, initial encounter; E87.5 Hyperkalemia; Z95.1 Presence of aortocoronary bypass graft; Z95.2 Presence of prosthetic heart valve; Z87.442 Personal history of urinary calculi; Z90.6 Acquired absence of other parts of urinary tract; Z87.19 Personal history of other diseases of the digestive system; Z98.890 Other specified postprocedural states; Z86.79 Personal history of other diseases of the circulatory system; Z79.51 Long term (current) use of inhaled steroids; Z79.899 Other long term (current) drug therapy; Z86.19 Personal history of other infectious and parasitic diseases; Z86.16 Personal history of COVID-19; Z87.891 Personal history of nicotine dependence; Z79.02 Long term (current) use of antithrombotics/antiplatelets; Z79.01 Long term (current) use of anticoagulants; Z79.891 Long term (current) use of opiate analgesic; Z79.2 Long term (current) use of antibiotics; Z79.52 Long term (current) use of systemic steroids
CPT/HCPCS: 0241U; 31720; 36415; 36430; 36558; 71045; 71046; 71250; 74018; 74230; 76705; 76770; 76937; 77001; 80048; 80053; 80069; 80074; 81001; 82306; 82550; 82570; 82728; 82784; 82947; 83516; 83520; 83521; 83540; 83550; 83735; 83880; 84100; 84155; 84156; 84165; 84166; 84300; 84443; 84484; 84540; 85014; 85018; 85025; 86037; 86317; 86334; 86850; 86900; 86901; 86923; 87070; 87077; 87177; 87186; 87205; 87209; 92526; 92610; 92611; 93005; 93010; 93306; 93970; 94640; 94664; 94760; 94761; 96374; 96375; 97110; 97110-CQ; 97116; 97116-CQ; 97161; 97164; 97165; 97530; 97535; 99285-25; A9270; C1750; C1769; C1894; J0456; J0696; J1644; J1750; J1940; J1956; J2060; J2250; J2405; J2920; J2930; J3010; J7040; J7050; J7512; J7799; P9016; P9046; P9047; Q5106